=== PATIENT | female | born 1965 | race African-American/Black ===

== ENCOUNTER → 2016-10-04 | Outpatient (CLI) | payer OTHER ==
--- NOTE | 2016-10-04 13:11 | CT ---
EXAMINATION TYPE: CT brain wo con DATE OF EXAM: 10/04/2016 1:04 PM COMPARISON: CT and MRI brain May 31, 2016 HISTORY: MEDEROS, dizziness, blurred vision and leg weakness for [address] DLP: 1121 mGycm. Automated Exposure Control for Dose Reduction was Utilized. TECHNIQUE: CT scan of the head is performed without contrast. FINDINGS: There is no acute intracranial hemorrhage or midline shift identified. There is old infa rct right frontal parietal region near axial image 27 redemonstrated. There is additional area of enc ephalomalacia in the higher right parietal occipital region posterior watershed redemonstrated near i mage 39. The ventricles and sulci are within normal limits in size. The globes are intact and the vi sualized sinuses are clear. There is persistent anterior metopic suture. IMPRESSION: No acute intracranial hemorrhage or midline shift is seen. There are persistent old righ t-sided infarcts redemonstrated. No significant change from prior. If clinical concern for acute stro ke persists further investigation with MRI study may be warranted.
== END ==
LOC: RADCTMAIN 12:37
PROVIDERS: ATTEND Family Medicine
DX: R51 Headache (principal)
CPT/HCPCS: 70450

== ENCOUNTER → 2017-03-21 | Outpatient (CLI) | payer OTHER ==
--- NOTE | 2017-03-22 14:26 | US ---
EXAMINATION TYPE: US carotid duplex BILAT DATE OF EXAM: 03/21/2017 COMPARISON: Previous carotid Doppler duplex dated 05/31/2016 CLINICAL HISTORY: I63.311 R MCA INFARCTION. TIA's, dizziness EXAM MEASUREMENTS: RIGHT: Peak Systolic Velocity (PSV) cm/sec ----- Right CCA: not detected ----- Right ICA: not detected ----- Right ECA: not detected ICA/CCA ratio: N/A RIGHT: End Diastole cm/sec ----- Right CCA: not detected ----- Right ICA: not detected ----- Right ECA: not detected LEFT: Peak Systolic Velocity (PSV) cm/sec ----- Left CCA: 75.3 ----- Left ICA: 120.7 ----- Left ECA: 68.3 ICA/CCA ratio: 1.6 LEFT: End Diastole cm/sec ----- Left CCA: 27.3 ----- Left ICA: 61.2 ----- Left ECA: 19.5 VERTEBRALS (direction of flow): Right Vertebral: Antegrade Left Vertebral: Antegrade Right total occlusion within CCA, ICA and ECA, left has mild homogeneous plaque seen, with no signifi cant stenosis seen Grayscale, color Doppler, spectral Doppler imaging performed of the carotid arteries. IMPRESSION: Occluded right common carotid artery as on previous exam.
== END ==
LOC: RADUSWWP 16:01
PROVIDERS: ATTEND Psychiatry & Neurology Neurology
DX: I65.21 Occlusion and stenosis of right carotid artery (principal)
CPT/HCPCS: 93880

== ENCOUNTER → 2017-03-25 | Outpatient (CLI) | payer OTHER | END | disposition home or self-care (01) | LOC: RADMRIMAIN 10:00 | PROVIDERS: ATTEND Psychiatry & Neurology Pain Medicine | DX: Z53.9 Procedure and treatment not carried out, unspecified reason (principal) ==

== ENCOUNTER → 2017-04-09 | Outpatient (CLI) | payer OTHER ==
--- NOTE | 2017-04-09 11:28 | MR ---
EXAMINATION TYPE: MR brain wo con DATE OF EXAM: 04/09/2017 COMPARISON: MRI brain May 31, 2016. CT brain October 04, 2016. HISTORY: stroke per order, dizziness per patient. TECHNIQUE: Multiplanar, multisequence imaging of the brain and brainstem is performed without IV cont rast. FINDINGS: Diffusion weighted images demonstrate no evidence of a recent infarct or other diffusion abnormality. There is no extraaxial fluid collection or significant white matter signal abnormality. The ventricu lar system and cisternal spaces are normal in size and appearance. The brain volume is age appropria te. There is redemonstration of old infarcts posterior right frontal lobe and right parietal occipita l level posterior watershed region. Midline structures demonstrate normal morphology. The craniocervical junction appears within normal limits. Normal vascular flow voids are present. There is redemonstration of 1.4 cm mucous retention c yst or polyp in the anterior inferior right maxillary sinus otherwise paranasal sinuses are clear. Th e globes are intact bilaterally. IMPRESSION: No evidence of a recent infarct. Right-sided infarcts are redemonstrated. No significant change from prior studies is noted.
== END | disposition home or self-care (01) ==
LOC: RADMRIMAIN 09:41
PROVIDERS: ATTEND Psychiatry & Neurology Pain Medicine
DX: I63.9 Cerebral infarction, unspecified (principal)
CPT/HCPCS: 70551

== ENCOUNTER 2017-04-14 11:58 | Emergency (ER) | payer OTHER ==
[2017-04-14] MEDS ORDERED: SODIUM CHLORIDE 0.9% 1,000 ML IV STA (12:27)
[2017-04-14] MEDS ORDERED: SODIUM CHLORIDE 0.9% 500 ML IV STA (12:27)
[2017-04-14] MEDS ORDERED: DIAZEPAM 5 MG/ML 2 ML INJ IVP STA (12:27)
--- NOTE | 2017-04-14 12:46 | ED ---
Dizziness HPI - General Chief Complaint: Dizziness Stated Complaint: Dizziness Time Seen by Provider: 04/14/17 12:15 Source: patient Mode of arrival: ambulatory Limitations: no limitations - History of Present Illness Initial Comments: Presents with dizziness, which is not a new problem for her. Patient states she has had these symptoms since she was diagnosed with a stroke in May 2017, denies chronic deficits from a stroke other than recurrent dizziness. Patient does not normally come to the hospital for these episodes, however she is with a friend today who noticed she appeared off balance while walking and wanted her to come to the ER to be evaluated. She says she has similar episodes weekly, sometimes up to 3 times per day. Patient denies being on any medications for the dizziness. Patient states she was seen by ENT doctor 2 weeks ago, states has a follow-up appointment tomorrow to get the results of her testing. Patient denies any associated symptoms, including confusion, vision changes, speech problems, numbness, weakness, falls, fevers, chills, nausea, vomiting or chest pains, palpitations, shortness of breath. MD Complaint: dizziness Onset/Timin -: hour(s) Timing: sudden onset, constant Description: off-balance, other ("like I'm drunk") History of Same: Yes (Occurs weekly since stroke May 2016, up to 3x/day per patient) Severity: moderate Improves With: remaining still Worsens With: other (leaning head back, standing up, movement) - Related Data Home Medications Medication Instructions Recorded Confirmed QUEtiapine [SEROquel] 800 mg PO HS 05/31/16 04/14/17 lamoTRIgine [LaMICtal] 200 mg PO BID 05/31/16 04/14/17 Atorvastatin [Lipitor] 40 mg PO HS 04/14/17 04/14/17 Lisinopril-Hctz 20-25 mg 1 tab PO DAILY 04/14/17 04/14/17 [Zestoretic 20-25] Previous Rx's Medication Instructions Recorded Metoprolol Tartrate [Lopressor] 50 mg PO BID #60 tab 06/19/15 Aspirin 81 mg PO BID #1 chewable 06/03/16 Meclizine [Antivert] 25 mg PO TID PRN #15 tab 04/14/17 Allergies Allergy/AdvReac Type Severity Reaction Status Date / Time iodine Allergy Rash/Hives Verified 04/14/17 13:27 Review of Systems ROS Statement: Those systems with pertinent positive or pertinent negative responses have been documented in the HPI. ROS Other: All systems not noted in ROS Statement are negative. Constitutional: Denies: fever, chills, weakness Eyes: Denies: vision change ENT: Denies: ear pain, hearing loss, congestion Respiratory: Denies: cough, dyspnea, wheezes Cardiovascular: Denies: chest pain, palpitations, syncope Endocrine: Denies: fatigue Gastrointestinal: Denies: abdominal pain, nausea, vomiting, diarrhea, constipation Genitourinary: Reports: urgency. Denies: dysuria, frequency, hematuria Musculoskeletal: Denies: arthralgia, myalgia Skin: Denies: rash Neurological: Reports: abnormal gait, vertigo. Denies: headache, weakness, numbness, paresthesias, confusion Past Medical History Past Medical History: CVA/TIA, Hypertension Additional Past Medical History / Comment(s): pancreatitis, bipolar History of Any Multi-Drug Resistant Organisms: None Reported Past Surgical History: Hysterectomy Additional Past Surgical History / Comment(s): partial hysterectomy Past Anesthesia/Blood Transfusion Reactions: No Reported Reaction Past Psychological History: Bipolar Smoking Status: Current every day smoker Past Alcohol Use History: Occasional Past Drug Use History: None Reported - Past Family History Father Family Medical History: No Reported History Additional Family Medical History / Comment(s): from complications from alcoholism Mother History Unknown: Yes Family Medical History: Cancer, Hypertension, Osteoarthritis (OA) General Exam Limitations: no limitations General appearance: alert, in no apparent distress, other (Sitting up in bed. Acute distress. Conversing normally. Calm, pleasant. Well-appearing.) Head exam: Present: atraumatic, normocephalic Eye exam: Present: normal appearance, PERRL, other (Eye movements intact bilaterally). Absent: nystagmus Pupils: Absent: unequal ENT exam: Present: mucous membranes moist, normal external ear exam Neck exam: Present: normal inspection Respiratory exam: Present: normal lung sounds bilaterally. Absent: respiratory distress, wheezes Cardiovascular Exam: Present: regular rate, normal rhythm, normal heart sounds GI/Abdominal exam: Present: soft. Absent: distended, tenderness, guarding, rebound Extremities exam: Present: normal inspection Neurological exam: Present: alert, oriented X3, CN II-XII intact, other ( Cranial nerves II through XII intact. Conversing normally. Muscle strength 5 out of 5 in all extremities. [id number] coordinated bilaterally. Heel to hawkins coordinated bilaterally. Pronator drift negative bilaterally. Sensation grossly intact in all extremities. Patient appears slightly off balance when standing up at bedside.). Absent: motor sensory deficit Psychiatric exam: Present: normal affect, normal mood Skin exam: Present: warm, dry. Absent: diaphoretic Course Vital Signs 04/14/17 04/14/17 04/14/17 12:05 13:08 14:07 Temperature 98.7 F 98.5 F Pulse Rate 69 61 61 Respiratory 18 18 16 Rate Blood Pressure 118/74 113/60 119/80 O2 Sat by Pulse 100 98 100 Oximetry EKG Findings - EKG Comments: EKG Findings:: Normal sinus rhythm, heart rate 70, no ST or T-wave changes appreciated. Medical Decision Making - Medical Decision Making Patient presents with dizziness that is a chronic problem for her since May 2016. Patient states symptoms are the same, however her friend with her today wanted her to come to the ER. Given patient's history of stroke with similar symptoms, we'll get CT of the head. CT of the head shows no acute process Patient states dizziness and all symptoms resolved after Valium. Patient stood up at bedside, unsteadiness resolved, able to stand and ambulate without assistance. Patient feels comfortable going home at this time. Patient has appointment with ENT doctor tomorrow which she agrees to follow-up at. Patient instructed to call her primary care physician for follow-up within 2 days. Should patient's symptoms return patient may require admission or outpatient MRI by primary care physician. Do not feel patient has signs of acute stroke at this time as all her symptoms are resolved. Will discharge home. Prescription for Antivert given. Patient understands and agrees with treatment plan. Asymptomatically at time of discharge. - Lab Data Result diagrams: 04/14/17 12:55 04/14/17 12:55 Lab Results 04/14/17 04/14/17 04/14/17 Range/Units 12:47 12:55 12:55 WBC 4.1 (3.8-10.6) k/uL RBC 4.03 (3.80-5.40) m/uL Hgb 12.8 (11.4-16.0) gm/dL Hct 39.0 (34.0-46.0) % MCV 96.9 (80.0-100.0) fL MCH 31.7 (25.0-35.0) pg MCHC 32.8 (31.0-37.0) g/dL RDW 12.5 (11.5-15.5) % Plt Count 321 (150-450) k/uL Neutrophils % 49 % Lymphocytes % 39 % Monocytes % 6 % Eosinophils % 1 % Basophils % 1 % Neutrophils # 2.0 (1.3-7.7) k/uL Lymphocytes # 1.6 (1.0-4.8) k/uL Monocytes # 0.2 (0-1.0) k/uL Eosinophils # 0.1 (0-0.7) k/uL Basophils # 0.0 (0-0.2) k/uL PT (9.0-12.0) sec INR (<1.2) APTT (22.0-30.0) sec Sodium 141 (137-145) mmol/L Potassium 4.8 (3.5-5.1) mmol/L Chloride 104 (98-107) mmol/L Carbon Dioxide 25 (22-30) mmol/L Anion Gap 12 mmol/L BUN 18 H (7-17) mg/dL Creatinine 1.56 H (0.52-1.04) mg/dL Est GFR (MDRD) Af Amer 42 (>60 ml/min/1.73 sqM) Est GFR (MDRD) Non-Af 35 (>60 ml/min/1.73 sqM) Glucose 98 (74-99) mg/dL Calcium 9.7 (8.4-10.2) mg/dL Urine Color Yellow Urine Appearance Clear (Clear) Urine pH 6.0 (5.0-8.0) Ur Specific [place] 1.005 (1.001-1.035) Urine Protein Negative (Negative) Urine Glucose (UA) Negative (Negative) Urine Ketones Negative (Negative) Urine Blood Negative (Negative) Urine Nitrite Negative (Negative) Urine Bilirubin Negative (Negative) Urine Urobilinogen <2.0 (<2.0) mg/dL Ur Leukocyte Esterase Negative (Negative) Serum Alcohol <10 mg/dL 04/14/17 Range/Units 12:55 WBC (3.8-10.6) k/uL RBC (3.80-5.40) m/uL Hgb (11.4-16.0) gm/dL Hct (34.0-46.0) % MCV (80.0-100.0) fL MCH (25.0-35.0) pg MCHC (31.0-37.0) g/dL RDW (11.5-15.5) % Plt Count (150-450) k/uL Neutrophils % % Lymphocytes % % Monocytes % % Eosinophils % % Basophils % % Neutrophils # (1.3-7.7) k/uL Lymphocytes # (1.0-4.8) k/uL Monocytes # (0-1.0) k/uL Eosinophils # (0-0.7) k/uL Basophils # (0-0.2) k/uL PT 10.6 (9.0-12.0) sec INR 1.0 (<1.2) APTT 24.7 (22.0-30.0) sec Sodium (137-145) mmol/L Potassium (3.5-5.1) mmol/L Chloride (98-107) mmol/L Carbon Dioxide (22-30) mmol/L Anion Gap mmol/L BUN (7-17) mg/dL Creatinine (0.52-1.04) mg/dL Est GFR (MDRD) Af Amer (>60 ml/min/1.73 sqM) Est GFR (MDRD) Non-Af (>60 ml/min/1.73 sqM) Glucose (74-99) mg/dL Calcium (8.4-10.2) mg/dL Urine Color Urine Appearance (Clear) Urine pH (5.0-8.0) Ur Specific [place] (1.001-1.035) Urine Protein (Negative) Urine Glucose (UA) (Negative) Urine Ketones (Negative) Urine Blood (Negative) Urine Nitrite (Negative) Urine Bilirubin (Negative) Urine Urobilinogen (<2.0) mg/dL Ur Leukocyte Esterase (Negative) Serum Alcohol mg/dL - EKG Data EKG shows normal: sinus rhythm Rate: normal - Radiology Data Radiology results: report reviewed No acute intracranial process Disposition Clinical Impression: Dizziness Disposition: HOME SELF-CARE Condition: Good Instructions: Dizziness (ED) Additional Instructions: Follow-up at your scheduled ENT appointment tomorrow. Call your Primary care physician to schedule follow-up within 2 days. Return to ED immediately if there are any new or worsening symptoms, including vision changes, headaches, weakness, numbness, speech problems, fevers, chills, neck pain, falls. Prescriptions: Meclizine [Antivert] 25 mg PO TID PRN #15 tab PRN Reason: Dizziness Referrals: Antonio Monge DO [Primary Care Provider] - 1-2 days
[2017-04-14 12:54] LABS: Appearance,Urine Clear (Clear); Bilirubin,Urine Negative (Negative); Glucose,Urine (UA) Negative (Negative); Ketones,Urine Negative (Negative); Leukocyte Esterase,Urine Negative (Negative); Nitrite,Urine Negative (Negative); Protein,Urine Negative (Negative); Specific Gravity,Urine 1.005 (1.001-1.035); UA Billing (MACRO vs. MICRO) CHEM; Urobilinogen,Urine <2.0 mg/dL (<2.0)
--- NOTE | 2017-04-14 13:15 | CT ---
EXAMINATION TYPE: CT brain wo con DATE OF EXAM: 04/14/2017 COMPARISON: 10/04/16 HISTORY: Dizziness CT DLP: 822.[address] of the brain was performed. The ventricles, basal cisterns and sulci overlying the cerebral convexities demonstrate mild enlargem ent. Remote insult right parietal lobe. There is no evidence for intracranial hemorrhage or sulcal effacement. There is decreased attenuation about the periventricular white matter and deep white matter of both c erebral hemispheres, compatible with chronic small vessel ischemia. Differential diagnosis does inclu de demyelination. No mass effects are seen.No midline shift. Osseous calvarium is intact. If symptoms persist consider MRI. IMPRESSION: 1. Age related atrophic and chronic small vessel ischemic change without acute intracranial process s een at this time.
[2017-04-14 13:18] LABS: Alcohol <10 mg/dL; Anion Gap 12 mmol/L; Blood Urea Nitrogen 18 mg/dL (7-17); Calcium 9.7 mg/dL (8.4-10.2); Carbon Dioxide 25 mmol/L (22-30); Chloride 104 mmol/L (98-107); Glucose 98 mg/dL (74-99); Non-African American GFR(MDRD) 35 (>60 ml/min/1.73 sqM); Potassium 4.8 mmol/L (3.5-5.1); Sodium 141 mmol/L (137-145)
[2017-04-14 13:20] LABS: Partial Thromboplastin Time 24.7 sec (22.0-30.0); Prothrombin Time 10.6 sec (9.0-12.0)
[2017-04-14 13:23] VITALS: PULSE 61
[2017-04-14 13:24] LABS: Basophils % (A) 1 %; CH 31.9; Eosinophils # (A) 0.1 k/uL (0-0.7); Eosinophils % (A) 1 %; HDW 1.98; HGB 12.8 gm/dL (11.4-16.0); Luc # (Auto) 0.17; Luc % (Auto) 4; Lymphocytes # (A) 1.6 k/uL (1.0-4.8); Lymphocytes % (A) 39 %; MCH 31.7 pg (25.0-35.0); MCHC 32.8 g/dL (31.0-37.0); MCV 96.9 fL (80.0-100.0); Mean Platelet Volume 7.9; Monocytes # (A) 0.2 k/uL (0-1.0); Monocytes % (A) 6 %; Neutrophils % (A) 49 %; RBC 4.03 m/uL (3.80-5.40); RDW 12.5 % (11.5-15.5); WBC 4.1 k/uL (3.8-10.6); WBC (Perox) 4.14
[2017-04-14 14:08] VITALS: BP 119/80; RESP 16; TEMP 98.5
== END 2017-04-14 14:23 | disposition home or self-care (01) ==
LOC: EC 11:58
DX: R42 Dizziness and giddiness (principal); I10 Essential (primary) hypertension; F31.9 Bipolar disorder, unspecified; F17.200 Nicotine dependence, unspecified, uncomplicated; Z86.73 Personal history of transient ischemic attack (TIA), and cerebral infarction without residual deficits; Z91.048 Other nonmedicinal substance allergy status; Z79.899 Other long term (current) drug therapy
CPT/HCPCS: 99284 ×2; 96374 ×2; 96361 ×2; 36415; 93005; 80048; 85025; 85610; 85730; 81003; 80320; 70450; J3360

== ENCOUNTER → 2017-05-21 | Outpatient (CLI) | payer OTHER ==
--- NOTE | 2017-05-23 10:59 | MM ---
Reason for exam: screening (asymptomatic). Last mammogram was performed 11 years ago. History: Patient is postmenopausal. Family history of breast cancer in mother at age 78. Physical Findings: A clinical breast exam by your physician is recommended on an annual basis and results should be correlated with mammographic findings. MG Screening Mammo w CAD Bilateral CC and MLO view(s) were taken. Prior study comparison: May 09, 2006, bilateral screening mammogram w/CAD. August 20, 2002, bilateral screening mammogram. The breast tissue is heterogeneously dense. This may lower the sensitivity of mammography. There is no discrete abnormality. ASSESSMENT: Negative, BI-RAD 1 RECOMMENDATION: Routine screening mammogram of both breasts in 1 year.
== END | disposition home or self-care (01) ==
LOC: RADMAMWWP 08:02
PROVIDERS: ATTEND Family Medicine
DX: Z12.31 Encounter for screening mammogram for malignant neoplasm of breast (principal)

== ENCOUNTER → 2017-11-10 | Outpatient (CLI) | payer OTHER ==
[2017-11-10 17:37] LABS: Basophils % (A) 1 %; Eosinophils # (A) 0.1 k/uL (0-0.7); Eosinophils % (A) 1 %; HCT 40.5 % (34.0-46.0); HGB 13.6 gm/dL (11.4-16.0); Lymphocytes # (A) 2.5 k/uL (1.0-4.8); Lymphocytes % (A) 35 %; MCH 31.2 pg (25.0-35.0); MCHC 33.5 g/dL (31.0-37.0); Mean Platelet Volume 7.9; Monocytes # (A) 0.3 k/uL (0-1.0); Monocytes % (A) 4 %; Neutrophils # (A) 4.2 k/uL (1.3-7.7); Neutrophils % (A) 58 %; Platelet Count 305 k/uL (150-450); RBC 4.35 m/uL (3.80-5.40); WBC 7.2 k/uL (3.8-10.6)
[2017-11-10 17:50] LABS: Calcium 9.9 mg/dL (8.4-10.2); Magnesium 2.2 mg/dL (1.6-2.3); Phosphorus 3.3 mg/dL (2.5-4.5); Potassium 4.4 mmol/L (3.5-5.1); Uric Acid 4.8 mg/dL (3.7-7.4)
[2017-11-10 17:54] LABS: Appearance,Urine Clear (Clear); Bilirubin,Urine Negative (Negative); Blood,Urine Negative (Negative); Color,Urine Yellow; Glucose,Urine (UA) Negative (Negative); Ketones,Urine Negative (Negative); Leukocyte Esterase,Urine Small (Negative); Mucus,Urine Rare /hpf; Nitrite,Urine Negative (Negative); PH, Urine 5.5 (5.0-8.0); Protein,Urine Negative (Negative); RBC,Urine 1 /hpf (0-5); Specific Gravity,Urine 1.014 (1.001-1.035); Squamous Epithelial Cell,Urine 2 /hpf (0-4); Urobilinogen,Urine <2.0 mg/dL (<2.0); WBC,Urine 9 /hpf (0-5)
[2017-11-11 00:49] LABS: Iron Saturation 25.42 (12.00-45.00)
[2017-11-11 00:58] LABS: Vitamin D 25 Hydroxy 24.2 ng/mL (30.0-100.0)
[2017-11-11 01:17] LABS: Parathyroid Hormone Intact 41.3 pg/mL (14.0-72.0)
== END | disposition home or self-care (01) ==
LOC: LABWHC1 17:18
PROVIDERS: ATTEND Internal Medicine Nephrology
DX: N18.4 Chronic kidney disease, stage 4 (severe) (principal); E55.9 Vitamin D deficiency, unspecified; E21.3 Hyperparathyroidism, unspecified; E83.39 Other disorders of phosphorus metabolism; M10.9 Gout, unspecified; R80.9 Proteinuria, unspecified
CPT/HCPCS: 36415; 80048; 81001; 82306; 82728; 83540; 83550; 83735; 83970; 84100; 84550; 85025

== ENCOUNTER → 2017-12-04 | Outpatient (CLI) | payer OTHER ==
--- NOTE | 2017-12-04 17:21 | US ---
EXAMINATION TYPE: US carotid duplex BILAT DATE OF EXAM: 12/04/2017 COMPARISON: 03/21/2017 CLINICAL HISTORY: I63.9 Cerebral infarction, unspecified. EXAM MEASUREMENTS: RIGHT: Peak Systolic Velocity (PSV) cm/sec ----- Right CCA: 46.9 ----- Right ICA: 67.9 ----- Right ECA: 42.3 ICA/CCA ratio: 1.4 RIGHT: End Diastole cm/sec ----- Right CCA: 19.3 ----- Right ICA: 27.7 ----- Right ECA: 42.3 LEFT: Peak Systolic Velocity (PSV) cm/sec ----- Left CCA: 87.3 ----- Left ICA: 105.0 ----- Left ECA: 81.9 ICA/CCA ratio: 1.2 LEFT: End Diastole cm/sec ----- Left CCA: 36.7 ----- Left ICA: 58.6 ----- Left ECA: 34.6 VERTEBRALS (direction of flow): Right Vertebral: Antegrade Left Vertebral: Antegrade Right sided CCA of very small caliber, ICA and ECA measuring only 2mm. There does not seem to be any plaque in these vessels. Technically difficult due to small size. Left side show no evident atherosclerotic changes. Left ICA dives at 90 degree angle making it diffic ult to visualized distally. IMPRESSION: exam what is attributed to be the right carotid artery I think is a collateral vessel. There is evidence for complete occlusion of the right internal and common carotid artery. No evidence of hemodynamically significant stenosis in the left common and internal carotid artery. M easurements suggest less than 25% stenosis in the left internal carotid artery. There is antegrade flow in the vertebral arteries. There is no significant change compared to old exam. Criteria for Assigning % of Stenosis / Diameter reduction (Estimation based on the indirect measurements of the internal carotid artery velocities (ICA PSV). 1. Normal (no stenosis)=ICA PSV < 125 cm/s: ratio < 2.0: ICA EDV<40 cm/s. 2. Less than 50% stenosis=ICA PSV < 125 cm/s: ratio < 2.0: ICA EDV<40 cm/s. 3. 50 to 69% stenosis=ICA PSV of 125 to 230 cm/s: ration 2.0 ? 4.0: ICA EDV 40-100 cm/s. 4. Greater than 70% stenosis to near occlusion= ICA PSV > 230 cm/s: ratio > 4.0: ICA EDV > 100 cm/s. 5. Near occlusion= ICA PSV velocities may be low or undetectable: variable ratio and ICA EDV. 6. Total occlusion=unable to detect flow.
--- NOTE | 2017-12-05 08:40 | CT ---
EXAMINATION TYPE: CT angio head neck DATE OF EXAM: 12/04/2017 HISTORY: Dizzy spells, memory issues. COMPARISON: Carotid ultrasound dated 12/04/2017 CT DLP: 273.2 mGycm. Automated Exposure Control for Dose Reduction was Utilized. TECHNIQUE: CTA scan of the neck is performed with IV Contrast, patient injected with 65 mL of Isovue 370, axial images are obtained, coronal and sagittal reformatted images are reviewed. Three-D recons tructed images are created on an independent workstation and reviewed. FINDINGS: Carotid/Vascular Structures: As seen on the carotid ultrasound dated 12/04/2017 and additionally the u ltrasound dated 03/21/2017 as well as on the CT AngioJet and neck dated 06/02/2016 there is complete oc clusion of the right common carotid artery near its origin. Again there is total occlusion of the rig ht common carotid artery and internal carotid artery with some minimal likely retrograde flow in the supraclinoid portion of the right internal carotid artery near the [place]. Left internal ca rotid artery remains entirely patent without hemodynamically significant stenosis throughout the comm on carotid artery or internal carotid artery again the [place] is intact. No focal aneurysma l outpouching is seen of the intracranial vasculature. Hypoplasia of the right A1 segment is less pro nounced on today's examination than on the prior. The vertebral arteries are codominant and patent as is the basilar artery. Few small collateral vessels appear within the region of the right common and internal carotid artery. Other: Right maxillary mucosal retention cyst measures 1.5 cm. Frontal sinuses are hypoplastic. Remai nder of the paranasal sinuses and mastoid air cells are well aerated. Although evaluation of the brai n parenchyma is limited due to technique there is a wedge-shaped area of hypoattenuation within the r ight frontal lobe near the sylvian fissure related to encephalomalacia from prior injury as this was present on the exam of 06/16/2017. Additionally encephalomalacia from prior infarct is unchanged withi n the right parietal lobe from the exam of 06/16/2017. Multilevel mild degenerative changes of the cer vical spine are noted. IMPRESSION: 1. Redemonstration of the known chronic total occlusion of the right common carotid artery near its o rigin and extending into the right internal carotid artery. Left vertebral artery appears widely [place] nt and [place] is intact. 2. Unchanged encephalomalacia within the right frontal and parietal lobes in comparison to the prior CT brain on 06/16/2017.
== END | disposition home or self-care (01) ==
LOC: RADUSMAIN 15:52
PROVIDERS: ATTEND Surgery Plastic and Reconstructive Surgery
DX: I65.21 Occlusion and stenosis of right carotid artery (principal); G93.89 Other specified disorders of brain
CPT/HCPCS: 93880; 70496; 70498; Q9967

== ENCOUNTER → 2017-12-15 | Outpatient (CLI) | payer OTHER ==
[2017-12-15 14:57] LABS: Basophils % (A) 1 %; Eosinophils % (A) 1 %; HCT 39.5 % (34.0-46.0); HGB 13.4 gm/dL (11.4-16.0); Lymphocytes # (A) 1.7 k/uL (1.0-4.8); Lymphocytes % (A) 30 %; MCH 32.2 pg (25.0-35.0); MCV 94.8 fL (80.0-100.0); Mean Platelet Volume 8.1; Monocytes # (A) 0.3 k/uL (0-1.0); Monocytes % (A) 5 %; Neutrophils # (A) 3.5 k/uL (1.3-7.7); Neutrophils % (A) 62 %; Platelet Count 255 k/uL (150-450); RBC 4.17 m/uL (3.80-5.40); RDW 14.1 % (11.5-15.5); WBC 5.7 k/uL (3.8-10.6)
[2017-12-15 15:15] LABS: Appearance,Urine Clear (Clear); Bilirubin,Urine Negative (Negative); Blood,Urine Negative (Negative); Color,Urine Yellow; Glucose,Urine (UA) Negative (Negative); Ketones,Urine Negative (Negative); Leukocyte Esterase,Urine Negative (Negative); Nitrite,Urine Negative (Negative); PH, Urine 5.5 (5.0-8.0); Protein,Urine Negative (Negative); Specific Gravity,Urine 1.011 (1.001-1.035); Urobilinogen,Urine <2.0 mg/dL (<2.0)
[2017-12-15 15:16] LABS: Magnesium 1.9 mg/dL (1.6-2.3); Phosphorus 4.1 mg/dL (2.5-4.5); Potassium 4.2 mmol/L (3.5-5.1); Uric Acid 4.1 mg/dL (3.7-7.4)
[2017-12-15 18:39] LABS: Iron Saturation 21.25 (12.00-45.00)
[2017-12-15 18:48] LABS: Vitamin D 25 Hydroxy 90.9 ng/mL (30.0-100.0)
[2017-12-15 19:23] LABS: Parathyroid Hormone Intact 37.6 pg/mL (14.0-72.0)
== END | disposition home or self-care (01) ==
LOC: LABWHC1 13:53
PROVIDERS: ATTEND Internal Medicine Nephrology
DX: N18.4 Chronic kidney disease, stage 4 (severe) (principal)
CPT/HCPCS: 36415; 80048; 81003; 82306; 82728; 83540; 83550; 83735; 83970; 84100; 84550; 85025

== ENCOUNTER 2018-01-28 08:45 | Day surgery (SDC) | payer OTHER ==
[2018-01-23 15:15] VITALS: BMI 30.2
[~2018-01-28 08:45] MED LIST: LACTATED RINGERS 1,000 ML IV SCH
--- NOTE | 2018-01-28 09:08 | P.GSHP ---
History of Present Illness H&P Date: 01/28/18 CHIEF COMPLAINT: Colon screen HISTORY OF PRESENT ILLNESS: The patient is a 52-year-old female who presents for colon screen. Lower endoscopy was offered for further evaluation and management. PAST MEDICAL HISTORY: Please see list. PAST SURGICAL HISTORY: Please see list. MEDICATIONS: Please see list. ALLERGIES: Please see list. SOCIAL HISTORY: No illicit drug use FAMILY HISTORY: No reports of Crohn disease or ulcerative colitis. REVIEW OF ORGAN SYSTEMS: CONSTITUTIONAL: No reports of fevers or chills. PHYSICAL EXAM: VITAL SIGNS: Stable GENERAL: Well-developed pleasant in no acute distress. HEENT: No scleral icterus. Extraocular movements grossly intact. Moist buccal mucosa. NECK: Supple without lymphadenopathy. CHEST: Unlabored respirations. Equal bilateral excursions. CARDIOVASCULAR: Regular rate and rhythm. Distal 2+ pulses. ABDOMEN: Soft, nontender, nondistended. MUSCULOSKELETAL: No clubbing, cyanosis, or edema. ASSESSMENT: 1. Colon screen. PLAN: 1. Recommend proceeding with a lower endoscopy Past Medical History Past Medical History: CVA/TIA, Hypertension Additional Past Medical History / Comment(s): pancreatitis,CVA X 2-pancreatitis History of Any Multi-Drug Resistant Organisms: None Reported Past Surgical History: Hysterectomy Additional Past Surgical History / Comment(s): partial hysterectomy Past Anesthesia/Blood Transfusion Reactions: No Reported Reaction Smoking Status: Current some day smoker - Past Family History Father Family Medical History: No Reported History Additional Family Medical History / Comment(s): from complications from alcoholism Mother History Unknown: Yes Family Medical History: Cancer, Hypertension, Osteoarthritis (OA) Additional Family Medical History / Comment(s): breast CA Medications and Allergies Home Medications Medication Instructions Recorded Confirmed Type Metoprolol Tartrate [Lopressor] 50 mg PO BID #60 tab 06/19/15 01/23/18 Rx QUEtiapine [SEROquel] 800 mg PO HS 05/31/16 01/23/18 History lamoTRIgine [LaMICtal] 200 mg PO BID 05/31/16 01/23/18 History Atorvastatin [Lipitor] 40 mg PO HS 04/14/17 01/23/18 History Lisinopril-Hctz 20-25 mg 1 tab PO DAILY 04/14/17 01/23/18 History [Zestoretic 20-25] Aspirin EC [Ecotrin Low Dose] 81 mg PO DAILY 12/04/17 07/13/18 History Clopidogrel Bisulfate [Plavix] 75 mg PO DAILY 06/16/17 01/23/18 History Memantine [Namenda] 10 mg PO DAILY 06/16/17 01/23/18 History Meclizine [Antivert] 25 mg PO BID PRN 01/23/18 01/23/18 History Allergies Allergy/AdvReac Type Severity Reaction Status Date / Time iodine Allergy Rash/Hives Verified 01/23/18 15:05
[2018-01-28 09:16] VITALS: RESP 16; TEMP 97
[2018-01-28] MEDS ORDERED: LIDOCAINE 1% 20 ML VIAL (10MG/ML) FOR IV START INTRADERMA ONE (09:26)
[2018-01-28] MEDS ORDERED: PROPOFOL 10 MG/ML 20 ML VIAL IV ONE (09:37)
--- NOTE | 2018-01-28 10:06 | P.PCN ---
Date of Procedure: 01/28/18 Description of Procedure: PREOPERATIVE DIAGNOSIS: Colonoscopy screening Family history of colon cancer, father Personal history of large colon adenoma POSTOPERATIVE DIAGNOSIS: Colonoscopy screening Family history of colon cancer, father Personal history of large colon adenoma Multiple colon polyps proximal transverse colon External hemorrhoids, grade 3 OPERATION: Colonoscopy to the ileocecal valve and appendiceal orifice. Colonoscopy with hot snare polypectomy SURGEON: Lea Del Rosario MD. ANESTHESIA: MAC. INDICATIONS: The patient is a 52-year-old female who presents for colonoscopy screening. Benefits and risks were described and informed consent was obtained. DESCRIPTION OF PROCEDURE: The patient had undergone Gatorade, MiraLAX and Dulcolax prep. She had been brought into the operating room and laid in the left lateral decubitus position. After adequate intravenous sedation, the rectum was examined with 2% lidocaine jelly. External hemorrhoids were encountered. The rectal tone was within normal limits. No lesions were palpated in the rectal vault. An Olympus colonoscope was advanced until the ileocecal valve and appendiceal orifice were clearly viewed. The prep was fair with visualization of the mucosal folds. The scope was removed with visualization of each mucosal fold. No sigmoid diverticulosis was encountered. Colonic polyps were found and cold forcep biopsy or snare polypectomy. No evidence of focal colitis was found. Retroflexion of the scope demonstrated grade 2 internal hemorrhoids without active bleeding or inflammation. The colon was desufflated. The patient had tolerated the procedure well. Withdrawal time was over 6 minutes. FINDINGS: Internal hemorrhoids, grade 2 External hemorrhoids, grade 3 No arteriovenous malformations Removal of 1 polyp: - Snare polypectomy 10 mm tubulovillous adenoma polyp, mid transverse colon No focal colitis No sigmoid diverticulosis RECOMMENDATIONS: Given high personal and familial risks, repeat colonoscopy 2019 Plan - Discharge Summary New Discharge Prescriptions: No Action Metoprolol Tartrate [Lopressor] 50 mg PO BID #60 tab lamoTRIgine [LaMICtal] 200 mg PO BID QUEtiapine [SEROquel] 800 mg PO HS Atorvastatin [Lipitor] 40 mg PO HS Lisinopril-Hctz 20-25 mg [Zestoretic 20-25] 1 tab PO DAILY Memantine [Namenda] 10 mg PO DAILY Clopidogrel Bisulfate [Plavix] 75 mg PO DAILY Aspirin EC [Ecotrin Low Dose] 81 mg PO DAILY Meclizine [Antivert] 25 mg PO BID PRN PRN Reason: dizziness Discharge Medication List Metoprolol Tartrate [Lopressor] 50 mg PO BID #60 tab 06/19/15 [Rx] QUEtiapine [SEROquel] 800 mg PO HS 05/31/16 [History] lamoTRIgine [LaMICtal] 200 mg PO BID 05/31/16 [History] Atorvastatin [Lipitor] 40 mg PO HS 04/14/17 [History] Lisinopril-Hctz 20-25 mg [Zestoretic 20-25] 1 tab PO DAILY 04/14/17 [History] Aspirin EC [Ecotrin Low Dose] 81 mg PO DAILY 06/16/17 [History] Clopidogrel Bisulfate [Plavix] 75 mg PO DAILY 06/16/17 [History] Memantine [Namenda] 10 mg PO DAILY 06/16/17 [History] Meclizine [Antivert] 25 mg PO BID PRN 01/23/18 [History]
[2018-01-28 10:20] VITALS: BP 130/90; PULSE 75
== END 2018-01-28 10:38 | disposition home or self-care (01) ==
LOC: ORWHC2ENDO 08:45
PROVIDERS: ATTEND Surgery Plastic and Reconstructive Surgery
DX: Z12.11 Encounter for screening for malignant neoplasm of colon (principal); D12.3 Benign neoplasm of transverse colon; K64.1 Second degree hemorrhoids; K64.4 Residual hemorrhoidal skin tags; Z86.010 Personal history of colon polyps; Z80.0 Family history of malignant neoplasm of digestive organs; I10 Essential (primary) hypertension; I25.10 Atherosclerotic heart disease of native coronary artery without angina pectoris; Z90.710 Acquired absence of both cervix and uterus; Z86.73 Personal history of transient ischemic attack (TIA), and cerebral infarction without residual deficits; Z91.09 Other allergy status, other than to drugs and biological substances; Z79.02 Long term (current) use of antithrombotics/antiplatelets; Z79.82 Long term (current) use of aspirin; Z79.899 Other long term (current) drug therapy; Z87.891 Personal history of nicotine dependence
CPT/HCPCS: 88305; 45385; J2704

== ENCOUNTER → 2018-05-20 | Outpatient (CLI) | payer OTHER ==
[2018-05-20 14:22] LABS: Appearance,Urine Clear (Clear); Bilirubin,Urine Negative (Negative); Blood,Urine Negative (Negative); Color,Urine Yellow; Glucose,Urine (UA) Negative (Negative); Ketones,Urine Negative (Negative); Leukocyte Esterase,Urine Negative (Negative); Nitrite,Urine Negative (Negative); Protein,Urine Negative (Negative); Specific Gravity,Urine 1.012 (1.001-1.035); Urobilinogen,Urine <2.0 mg/dL (<2.0)
[2018-05-20 14:35] LABS: HGB 13.9 gm/dL (11.4-16.0); MCH 32.5 pg (25.0-35.0); MCHC 33.9 g/dL (31.0-37.0); Mean Platelet Volume 8.3; Platelet Count 246 k/uL (150-450); RBC 4.27 m/uL (3.80-5.40); RDW 13.1 % (11.5-15.5); WBC 5.4 k/uL (3.8-10.6)
[2018-05-20 15:07] LABS: Eosinophils # (M) 0.11 k/uL (0-0.7); Lymphocytes # (M) 2.32 k/uL (1.0-4.8); Monocytes # (M) 0.22 k/uL (0-1.0); Neutrophils # (M) 2.75 k/uL (1.3-7.7); Neutrophils % (M) 51 %; Nucleated Red Blood Cells 0 /100 WBC (0-0); Total Cells Counted 100
[2018-05-20 18:53] LABS: Iron Saturation 25.77 (12.00-45.00)
[2018-05-20 19:02] LABS: Vitamin D 25 Hydroxy 33.8 ng/mL (30.0-100.0)
[2018-05-20 19:18] LABS: Anion Gap 6.1 mmol/L (4.00-12.00); Calcium 9.1 mg/dL (8.7-10.3); Carbon Dioxide 31.9 mmol/L (21.6-31.8); Phosphorus 3.5 mg/dL (2.4-5.1); Potassium 3.8 mmol/L (3.5-5.5); Uric Acid 3.7 mg/dL (2.9-7.7)
[2018-05-20 19:49] LABS: Parathyroid Hormone Intact 60.5 pg/mL (14.0-72.0)
== END | disposition home or self-care (01) ==
LOC: LABWHC1 13:33
PROVIDERS: ATTEND Nurse Practitioner Family
DX: N18.3 Chronic kidney disease, stage 3 (moderate) (principal); E55.9 Vitamin D deficiency, unspecified; N25.81 Secondary hyperparathyroidism of renal origin; D63.1 Anemia in chronic kidney disease; N39.0 Urinary tract infection, site not specified; M10.9 Gout, unspecified
CPT/HCPCS: 36415; 80048; 81003; 82306; 82728; 83540; 83550; 83735; 83970; 84100; 84550; 85025

== ENCOUNTER 2018-05-28 10:57 | Day surgery (SDC) | payer OTHER ==
[2018-05-22 16:05] VITALS: BMI 30.2
[~2018-05-28 10:57] MED LIST changes: -LACTATED RINGERS 1,000 ML IV SCH; +SODIUM CHLORIDE 0.9% 1,000 ML IV SCH
[2018-05-28 11:46] VITALS: BP 122/87; PULSE 104; RESP 20; TEMP 98.2
[2018-05-28] MEDS ORDERED: IV FLUID CONTINUATION 500 ML IV ONE (13:14)
--- NOTE | 2018-05-28 16:41 | P.PCN ---
Preoperative Diagnosis: Diagnosis Recurrent dizzy spells with falls no loss of consciousness Twelve-lead ECG shows sinus rhythm normal DC narrow QRS normal ST segments Tilt table test per protocol Baseline blood pressure 137/92 mmHg Baseline heart rate 89 beats a minute patient was tilted upright at an angle of 70 there was an immediate drop in blood pressure to 117/75 mmHg with a rise in heart rate to 100 beats a minute a blood pressure then improved and came back to baseline but a heart rate remained consistently elevated in the 90s and low 100s She complained of a swimming feeling in the head and mild dizziness Mild orthostatic hypotension which resolved but with a 10-20 point increase in heart rate upon standing Impression Possible mild orthostatic intolerance
== END 2018-05-28 14:53 | disposition home or self-care (01) ==
LOC: CATHEP 10:57
PROVIDERS: ATTEND Internal Medicine Clinical Cardiac Electrophysiology
DX: I95.1 Orthostatic hypotension (principal); R94.31 Abnormal electrocardiogram [ECG] [EKG]; Z91.041 Radiographic dye allergy status
CPT/HCPCS: 93660

== ENCOUNTER → 2019-01-25 | Outpatient (CLI) | payer OTHER ==
--- NOTE | 2019-01-26 09:56 | MM ---
Reason for exam: screening (asymptomatic). Last mammogram was performed 1 year and 8 months ago. History: Patient is postmenopausal. Family history of breast cancer in mother at age 78. Physical Findings: A clinical breast exam by your physician is recommended on an annual basis and results should be correlated with mammographic findings. MG Screening Mammo w CAD Bilateral CC and MLO view(s) were taken. Prior study comparison: May 21, 2017, bilateral MG screening mammo w CAD. May 09, 2006, bilateral screening mammogram w/CAD. The breast tissue is heterogeneously dense. This may lower the sensitivity of mammography. No significant changes when compared with prior studies. ASSESSMENT: Benign, BI-RAD 2 RECOMMENDATION: Routine screening mammogram of both breasts in 1 year.
== END | disposition home or self-care (01) ==
LOC: RADMAMWWP 16:30
PROVIDERS: ATTEND Family Medicine
DX: Z12.31 Encounter for screening mammogram for malignant neoplasm of breast (principal)
CPT/HCPCS: 77067

== ENCOUNTER 2020-01-12 07:01 | Day surgery (SDC) | payer MEDICARE, OTHER ==
[2020-01-10 13:45] VITALS: BMI 30.4
[~2020-01-12 07:01] MED LIST changes: +LACTATED RINGERS 1,000 ML IV SCH; -SODIUM CHLORIDE 0.9% 1,000 ML IV SCH
[2020-01-12 07:35] VITALS: RESP 16; TEMP 96.6
[2020-01-12] MEDS ORDERED: LIDOCAINE 1% (10MG/ML) FOR IV START INTRADERMA ONE (07:45)
[2020-01-12] MEDS ORDERED: PROPOFOL 10 MG/ML 20 ML VIAL IV ONE (08:34)
[2020-01-12] MEDS ORDERED: SODIUM CHLORIDE 0.9% 500 ML 500 ML IV ONE (09:02)
--- NOTE | 2020-01-12 09:22 | P.GSHP ---
History of Present Illness H&P Date: 01/12/20 CHIEF COMPLAINT: Colon screen HISTORY OF PRESENT ILLNESS: The patient is a 54-year-old female who presents for colon screen. Lower endoscopy was offered for further evaluation and management. PAST MEDICAL HISTORY: Please see list. PAST SURGICAL HISTORY: Please see list. MEDICATIONS: Please see list. ALLERGIES: Please see list. SOCIAL HISTORY: No illicit drug use FAMILY HISTORY: No reports of Crohn disease or ulcerative colitis. REVIEW OF ORGAN SYSTEMS: CONSTITUTIONAL: No reports of fevers or chills. PHYSICAL EXAM: VITAL SIGNS: Stable GENERAL: Well-developed pleasant in no acute distress. HEENT: No scleral icterus. Extraocular movements grossly intact. Moist buccal mucosa. NECK: Supple without lymphadenopathy. CHEST: Unlabored respirations. Equal bilateral excursions. CARDIOVASCULAR: Regular rate and rhythm. Distal 2+ pulses. ABDOMEN: Soft, nontender, nondistended. MUSCULOSKELETAL: No clubbing, cyanosis, or edema. ASSESSMENT: 1. Colon screen. PLAN: 1. Recommend proceeding with a lower endoscopy Past Medical History Past Medical History: CVA/TIA, Hypertension Additional Past Medical History / Comment(s): pancreatitis, bipolar, hx of colon polyps History of Any Multi-Drug Resistant Organisms: None Reported Past Surgical History: Hysterectomy Additional Past Surgical History / Comment(s): partial hysterectomy, colonoscopy Past Anesthesia/Blood Transfusion Reactions: No Reported Reaction Smoking Status: Current some day smoker - Past Family History Father Family Medical History: No Reported History Additional Family Medical History / Comment(s): from complications from alcoholism Mother History Unknown: Yes Family Medical History: Cancer, Hypertension, Osteoarthritis (OA) Additional Family Medical History / Comment(s): breast CA Medications and Allergies Home Medications Medication Instructions Recorded Confirmed Type Metoprolol Tartrate [Lopressor] 50 mg PO BID #60 tab 06/19/15 01/10/20 Rx QUEtiapine [SEROquel] 800 mg PO HS 05/31/16 01/10/20 History lamoTRIgine [LaMICtal] 200 mg PO BID 05/31/16 01/10/20 History Lisinopril-Hctz 20-25 mg 1 tab PO DAILY 04/14/17 01/10/20 History [Zestoretic 20-25] Aspirin EC [Ecotrin Low Dose] 81 mg PO DAILY 06/16/17 01/10/20 History Meclizine [Antivert] 25 mg PO BID PRN 01/23/18 01/10/20 History Allergies Allergy/AdvReac Type Severity Reaction Status Date / Time Iodinated Contrast Media Allergy Rash/Hives Verified 01/12/20 07:31 [Iodinated Contrast- Oral and IV Dye] iodine Allergy Rash/Hives Verified 01/12/20 07:31 Surgical - Exam Vital Signs Temp Pulse Resp BP Pulse Ox 96.6 F L 92 16 162/95 98 01/12/20 07:33 01/12/20 07:33 01/12/20 07:33 01/12/20 07:33 01/12/20 07:33
[2020-01-12 09:42] VITALS: BP 163/90; PULSE 84
--- NOTE | 2020-01-12 09:48 | P.PCN ---
Date of Procedure: 01/12/20 Description of Procedure: PREOPERATIVE DIAGNOSIS: Personal history of colon polyps Family history malignant colon polyps POSTOPERATIVE DIAGNOSIS: Personal history of colon polyps Family history malignant colon polyps Tubular adenoma cecum Internal hemorrhoids, grade 2 OPERATION: Colonoscopy to the ileocecal valve and appendiceal orifice, cecum Colonoscopy with multiple hot snare polypectomies SURGEON: Lea Del Rosario MD. ANESTHESIA: MAC. INDICATIONS: The patient is an 63-year-old male who presents family history of malignant colon polyps and personal history of colon polyps. Last colonoscopy 5 years. Benefits and risks were described and informed consent was obtained. DESCRIPTION OF PROCEDURE: The patient had undergone Suprep. She had been brought into the operating room and laid in the left lateral decubitus position. After adequate intravenous sedation, the rectum was examined with 2% lidocaine jelly. External hemorrhoids were encountered. The rectal tone was within normal limits. No lesions were palpated in the rectal vault. An Olympus colonoscope was advanced until the cecum, ileocecal valve and appendiceal orifice were clearly viewed. The prep was fair. No sigmoid diverticulosis was encountered. Multiple colonic polyps were found and snare polypectomy. No evidence of focal colitis was found. Retroflexion of the scope demonstrated grade 2 internal hemorrhoids without active bleeding or inflammation. The colon was desufflated. The patient had tolerated the procedure well. Withdrawal time was over 6 minutes. FINDINGS: Aronchick preparation quality scale 3 (1-5) Internal hemorrhoids, grade 2 External hemorrhoids, grade 2 No arteriovenous malformations. No Sigmoid diverticulosis Removal of 2 polyps: - Snare polypectomy at cecum 2, 8 mm and 6 mm tubulovillous adenoma polyp. No focal colitis. RECOMMENDATIONS: Repeat colonoscopy in 3 years, 2024 Plan - Discharge Summary Discharge Rx Participant: No New Discharge Prescriptions: Continue Metoprolol Tartrate [Lopressor] 50 mg PO BID #60 tab lamoTRIgine [LaMICtal] 200 mg PO BID QUEtiapine [SEROquel] 800 mg PO HS Lisinopril-Hctz 20-25 mg [Zestoretic 20-25] 1 tab PO DAILY Aspirin EC [Ecotrin Low Dose] 81 mg PO DAILY Meclizine [Antivert] 25 mg PO BID PRN PRN Reason: dizziness Discharge Medication List Metoprolol Tartrate [Lopressor] 50 mg PO BID #60 tab 12/07/15 [Rx] QUEtiapine [SEROquel] 800 mg PO HS 05/31/16 [History] lamoTRIgine [LaMICtal] 200 mg PO BID 05/31/16 [History] Lisinopril-Hctz 20-25 mg [Zestoretic 20-25] 1 tab PO DAILY 04/14/17 [History] Aspirin EC [Ecotrin Low Dose] 81 mg PO DAILY 06/16/17 [History] Meclizine [Antivert] 25 mg PO BID PRN 01/23/18 [History] Follow up Appointment(s)/Referral(s): Lea Del Rosario MD [STAFF PHYSICIAN] - As Needed Patient Instructions/Handouts: *Surgery [facility] - (Anesthesia) Endoscopy Discharge Instructions, Colorectal Polyps (DC) Activity/Diet/Wound Care/Special Instructions: Repeat colonoscopy 2 years, 2021. Recommend 2 days of colon prep Discharge Disposition: HOME SELF-CARE
== END 2020-01-12 09:51 | disposition home or self-care (01) ==
LOC: ORWHC2ENDO 07:01
PROVIDERS: ATTEND Surgery Plastic and Reconstructive Surgery
DX: Z12.11 Encounter for screening for malignant neoplasm of colon (principal); D12.0 Benign neoplasm of cecum; K64.1 Second degree hemorrhoids; K64.4 Residual hemorrhoidal skin tags; Z86.010 Personal history of colon polyps; Z83.71 Family history of colonic polyps; Z80.0 Family history of malignant neoplasm of digestive organs; I10 Essential (primary) hypertension; F31.9 Bipolar disorder, unspecified; F17.210 Nicotine dependence, cigarettes, uncomplicated; Z86.73 Personal history of transient ischemic attack (TIA), and cerebral infarction without residual deficits; Z87.19 Personal history of other diseases of the digestive system; Z90.710 Acquired absence of both cervix and uterus; Z98.890 Other specified postprocedural states; Z79.899 Other long term (current) drug therapy; Z79.82 Long term (current) use of aspirin; Z91.048 Other nonmedicinal substance allergy status; Z91.041 Radiographic dye allergy status; Z97.2 Presence of dental prosthetic device (complete) (partial); Z81.1 Family history of alcohol abuse and dependence; Z80.3 Family history of malignant neoplasm of breast; Z82.49 Family history of ischemic heart disease and other diseases of the circulatory system; Z82.61 Family history of arthritis
CPT/HCPCS: 45385; 88305; J2704

== ENCOUNTER → 2020-03-08 | Outpatient (CLI) | payer MEDICARE, OTHER ==
[2020-03-08 16:28] LABS: African American GFR (CKD) 48.2 (60.0-200.0); Albumin 4.5 g/dL (3.80-4.90); Albumin/Globulin Ratio 1.96 (1.60-3.17); Anion Gap 7.3 mmol/L (4.00-12.00); BUN/Creat Ratio 7.14 Ratio (12.00-20.00); Calcium 9.2 mg/dL (8.7-10.3); Carbon Dioxide 25.7 mmol/L (21.6-31.8); Chol/HDL Ratio 2.02; Globulin 2.3 g/dL (1.6-3.3); Non-African American GFR(CKD) 41.6 (60.0-200.0); Potassium 4.7 mmol/L (3.5-5.5); Total Bilirubin 0.7 mg/dL (0.3-1.2); Total Protein 6.8 g/dL (6.2-8.2)
== END | disposition home or self-care (01) ==
LOC: LABWHC1 09:40
PROVIDERS: ATTEND Psychiatry & Neurology Pain Medicine
DX: Z51.81 Encounter for therapeutic drug level monitoring (principal)
CPT/HCPCS: 36415; 80053; 80061

== ENCOUNTER → 2020-04-11 | Outpatient (CLI) | payer MEDICARE, OTHER ==
--- NOTE | 2020-04-11 13:06 | US ---
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 Enlarged GLAND SIZE: Right Lobe: 5.7 x 1.7 x 2.1 cm Overall Parenchyma: homogenous Left Lobe: 5.7 x 1.7 x 2.4 cm Overall Parenchyma: homogeneous Isthmus Thickness: .3 cm NODULES RIGHT: # of nodules measured on right: One sub centimeter visualized. LEFT: # of nodules measured on left: 0 ISTHMUS: # of nodules measured in the isthmus: 0 Bilateral neck scanned, no evidence of lymphadenopathy. IMPRESSION: Thyromegaly with a single subcentimeter nodule within the right thyroid lobe
== END | disposition home or self-care (01) ==
LOC: RADUSWWP 12:36
PROVIDERS: ATTEND Psychiatry & Neurology Neurology
DX: E01.0 Iodine-deficiency related diffuse (endemic) goiter (principal)
CPT/HCPCS: 76536

== ENCOUNTER → 2021-02-15 | Outpatient (CLI) | payer MEDICARE, OTHER ==
--- NOTE | 2021-02-19 11:42 | MM ---
Reason for exam: screening (asymptomatic). Last mammogram was performed 2 years and 1 month ago. History: Patient is postmenopausal. Family history of breast cancer in mother at age 78. Physical Findings: A clinical breast exam by your physician is recommended on an annual basis and results should be correlated with mammographic findings. MG Screening Mammo w CAD Bilateral CC and MLO view(s) were taken. Prior study comparison: January 25, 2019, bilateral MG screening mammo w CAD. May 21, 2017, bilateral MG screening mammo w CAD. The breast tissue is heterogeneously dense. This may lower the sensitivity of mammography. No significant changes when compared with prior studies. ASSESSMENT: Incomplete: need additional imaging evaluation, BI-RAD 0 RECOMMENDATION: Ultrasound of the left breast. (left breast lump) [facility] will attempt to contact patient to return for ultrasound.
== END | disposition home or self-care (01) ==
LOC: RADMAMWWP 15:52
PROVIDERS: ATTEND Internal Medicine
DX: Z12.31 Encounter for screening mammogram for malignant neoplasm of breast (principal); Z78.0 Asymptomatic menopausal state; Z80.3 Family history of malignant neoplasm of breast
CPT/HCPCS: 77067

== ENCOUNTER → 2021-02-23 | Outpatient (CLI) | payer MEDICARE, OTHER ==
--- NOTE | 2021-02-26 08:01 | USB ---
Reason for exam: additional evaluation requested from abnormal screening. History: Patient is postmenopausal. Family history of breast cancer in mother at age 78. Physical Findings: Nurse did not find any significant physical abnormalities on exam. US Breast Workup Limited LT Left limited breast ultrasound including focal area of concern, retroareolar and axilla demonstrates a 0.9 x 1.1 x 1.0cm mixed lesion at 10 o'clock within 2.8cm superficial, hyperechoic area at palpable, patient states no injury. These results were verbally communicated with the patient and result sheet given to the patient on 02/23/21. ASSESSMENT: Suspicious, BI-RAD 4 RECOMMENDATION: Ultrasound core biopsy of the left breast. (correlate with history) Called Dr. Alex's office with mammographic findings and has scheduled an appointment for the patient for 03/30/21 at 3:[address] Grande. Biopsy scheduled for 04/02/21 at 1:00. PRELIMINARY REPORT CALLED AND FAXED TO DR. GRANDE ON 02/26/21.
== END | disposition home or self-care (01) ==
LOC: RADUSWWP 12:28
PROVIDERS: ATTEND Internal Medicine
DX: N64.89 Other specified disorders of breast (principal); Z78.0 Asymptomatic menopausal state; Z80.3 Family history of malignant neoplasm of breast

== ENCOUNTER 2021-04-01 10:40 | Emergency (ER) | payer MEDICARE, OTHER ==
[2021-04-01 11:00] VITALS: BP 168/106; PULSE 92; RESP 18; TEMP 98.3
--- NOTE | 2021-04-01 11:10 | ED ---
General Adult HPI - General Chief complaint: Extremity Injury, Lower Stated complaint: Toe injury Time Seen by Provider: 04/01/21 11:03 Source: patient, RN notes reviewed Mode of arrival: ambulatory Limitations: no limitations - History of Present Illness Initial comments: 56-year-old well-appearing black female, presents to the emergency room with complaints of 2 weeks of right foot pain. She states that she kicked a wall 2 weeks ago and has been tolerating the pain but it is continuing to hurt and not getting better. She is concerned for fracture. She is able to bear weight. She does not take any medications on a daily basis. She was offered Tylenol and/or Motrin and she refused. -: week(s) (2) Location: right (Foot), lower extremity Severity scale (1-10): 9 Quality: aching, sharp Consistency: constant Improves with: none Worsens with: other (Palpation) Associated Symptoms: denies other symptoms Treatments Prior to Arrival: none - Related Data Home Medications Medication Instructions Recorded Confirmed QUEtiapine [SEROquel] 800 mg PO HS 05/31/16 03/22/21 lamoTRIgine [LaMICtal] 200 mg PO BID 05/31/16 03/22/21 Lisinopril-Hctz 20-25 mg 1 tab PO DAILY 04/14/17 03/22/21 [Zestoretic 20-25] Aspirin EC [Ecotrin Low Dose] 81 mg PO DAILY 06/16/17 03/22/21 Meclizine [Antivert] 25 mg PO BID PRN 01/23/18 03/22/21 Atorvastatin [Lipitor] 40 mg PO DAILY 03/22/21 03/22/21 Clopidogrel [Plavix] 75 mg PO DAILY 03/22/21 03/22/21 Donepezil [Aricept] 10 mg PO DAILY 03/22/21 03/22/21 Multivitamin [Multivitamins Adult 1 each PO DAILY 03/22/21 03/22/21 Gummies] Omeprazole 40 mg PO DAILY 03/22/21 03/22/21 Venlafaxine HCl [Effexor XR] 150 mg PO DAILY 03/22/21 03/22/21 diphenhydrAMINE [Benadryl] 50 mg PO HS 03/22/21 03/22/21 Previous Rx's Medication Instructions Recorded Metoprolol Tartrate [Lopressor] 50 mg PO BID #60 tab 06/19/15 Allergies Allergy/AdvReac Type Severity Reaction Status Date / Time Iodinated Contrast Media Allergy Rash/Hives Verified 04/01/21 11:00 [Iodinated Contrast- Oral and IV Dye] iodine Allergy Swelling Verified 04/01/21 11:00 Review of Systems ROS Statement: Those systems with pertinent positive or pertinent negative responses have been documented in the HPI. ROS Other: All systems not noted in ROS Statement are negative. Past Medical History Past Medical History: CVA/TIA, Hypertension Additional Past Medical History / Comment(s): pancreatitis, bipolar, hx of colon polyps History of Any Multi-Drug Resistant Organisms: None Reported Past Surgical History: Hysterectomy Additional Past Surgical History / Comment(s): partial hysterectomy, colonoscopy Past Anesthesia/Blood Transfusion Reactions: No Reported Reaction Past Psychological History: Bipolar Smoking Status: Current every day smoker Past Alcohol Use History: None Reported Past Drug Use History: None Reported - Past Family History Father Family Medical History: No Reported History Additional Family Medical History / Comment(s): from complications from alcoholism Mother History Unknown: Yes Family Medical History: Cancer, Hypertension, Osteoarthritis (OA) Additional Family Medical History / Comment(s): breast CA General Exam Limitations: no limitations General appearance: alert, in no apparent distress Head exam: Present: atraumatic, normocephalic Eye exam: Present: normal appearance, EOMI ENT exam: Present: mucous membranes moist Neck exam: Present: full ROM Respiratory exam: Present: normal lung sounds bilaterally. Absent: respiratory distress, wheezes, rales, rhonchi, stridor Cardiovascular Exam: Present: regular rate, normal rhythm, normal heart sounds. Absent: systolic murmur, diastolic murmur, rubs, gallop, clicks Right Foot/Toe exam: Present: tenderness (Fourth and fifth metatarsal), swelling. Absent: abrasion, laceration, deformity Neurovascular tendon exam: Present: no vascular compromise. Absent: abnormal cap refill Gait: observed and normal Neurological exam: Present: alert, oriented X3 Psychiatric exam: Present: normal affect, normal mood Skin exam: Present: warm, dry, intact, normal color. Absent: rash Course Vital Signs 04/01/21 10:57 Temperature 98.3 F Pulse Rate 92 Respiratory 18 Rate Blood Pressure 168/106 O2 Sat by Pulse 96 Oximetry Medical Decision Making - Medical Decision Making There is an acute nondisplaced transverse fracture at the base of the fifth proximal phalanx. Patient was placed in an or social and directed to follow up with orthopedics. She again was offered Motrin or Tylenol and she refused. Case discussed with Dr. Lyons Disposition Clinical Impression: Toe fracture, right Disposition: HOME SELF-CARE Condition: Good Instructions (If sedation given, give patient instructions): Toe Fracture (ED) Additional Instructions: Follow-up with orthopedics next week. Tylenol and/or Motrin as needed for pain. Is patient prescribed a controlled substance at d/c from ED?: No Referrals: Cecil Alex MD [Primary Care Provider] - 1-2 days Renato Nair PAC [PHYSICIAN [employer]ER] - 1-2 days Time of Disposition: 11:39
--- NOTE | 2021-04-01 11:32 | XR ---
EXAMINATION TYPE: XR foot complete RT DATE OF EXAM: 04/01/2021 COMPARISON: NONE HISTORY: 56-year-old female stubbed fifth toe 2 weeks ago, pain TECHNIQUE: 3 views FINDINGS: There is a nondisplaced transverse fracture at the base of the fifth proximal phalanx. Overlying soft tissue swelling. No additional acute fracture, subluxation, dislocation seen. Small plantar heel spu r. IMPRESSION: Acute, nondisplaced transverse fracture at the base of the fifth proximal phalanx with overlying soft tissue swelling.
== END 2021-04-01 11:59 | disposition home or self-care (01) ==
LOC: EC 10:40
DX: S92.911A Unspecified fracture of right toe(s), initial encounter for closed fracture (principal); Z86.73 Personal history of transient ischemic attack (TIA), and cerebral infarction without residual deficits; I10 Essential (primary) hypertension; F31.9 Bipolar disorder, unspecified; F17.200 Nicotine dependence, unspecified, uncomplicated; W22.8XXA Striking against or struck by other objects, initial encounter
CPT/HCPCS: 99283

== ENCOUNTER → 2021-04-02 | Day surgery (SDC) | payer MEDICARE, OTHER ==
[2021-04-02 12:32] VITALS: BP 159/100; PULSE 77; RESP 12; TEMP 98.1
--- NOTE | 2021-04-02 14:33 | USB ---
Discontinued ultrasound guided core biopsy left breast HISTORY: Left breast lesion at the 10:00 position The patient was imaged prior to possible biopsy of the left 10:00 lesion. The area of interest is muc h smaller in size and fails to demonstrate heterogeneity seen previously. The area likely reflects a small lipoma. Continued follow-up is recommended with short-term follow-up in 3 months. IMPRESSION: Probably benign BI-RADS 3 Recommendation: Ultrasound follow-up of the left breast in 3 months
== END ==
LOC: RADUSWWP 12:07
PROVIDERS: ATTEND Surgery
DX: N63.25 Unspecified lump in the left breast, overlapping quadrants (principal)

== ENCOUNTER → 2021-04-09 | Outpatient (CLI) | payer MEDICARE, OTHER ==
--- NOTE | 2021-04-09 16:02 | US ---
EXAMINATION TYPE: US thyroid st tissue head/neck DATE OF EXAM: 04/09/2021 COMPARISON: US CLINICAL HISTORY: E01.0 THYROMEGALY. Thyromegaly. GLAND SIZE: Right Lobe: 4.9 x 2.3 x 1.6 cm Overall Parenchyma: homogenous Left Lobe: 5.3 x 2.2 x 1.9 cm Overall Parenchyma: homogeneous Isthmus Thickness: 0.2 cm NODULES RIGHT: # of nodules measured on right: 1 1. 0.4 X 0.5 x 0.2 cm, upper, complex nodule, which is wider than tall, with smooth margins, withou t echogenic foci. TR 3 Prior size: Subcentimeter nodule noted on prior exam. LEFT: # of nodules measured on left: 0 ISTHMUS: # of nodules measured in the isthmus: 0 Bilateral neck scanned, no evidence of lymphadenopathy. IMPRESSION: 1. Subcentimeter nodule right lobe thyroid. 2017 ACR TI-RADS LEVEL: TR-RADS 3 - Mildly Suspicious: Follow if > 1.5 cm, FNA if > 2.5 cm *Highest TI-RADS level nodule reported
== END | disposition home or self-care (01) ==
LOC: RADUSWWP 15:30
PROVIDERS: ATTEND Psychiatry & Neurology Neurology
DX: E04.1 Nontoxic single thyroid nodule (principal)
CPT/HCPCS: 76536

== ENCOUNTER 2021-04-30 09:25 | Emergency (ER) | payer MEDICARE, OTHER ==
[2021-04-30 09:40] VITALS: BP 202/110; PULSE 87; RESP 20; TEMP 97.7
--- NOTE | 2021-04-30 10:37 | XR ---
EXAMINATION TYPE: XR foot complete RT DATE OF EXAM: 04/30/2021 CLINICAL HISTORY: Foot pain TECHNIQUE: Frontal, lateral, and oblique images of the right foot are obtained. COMPARISON: 04/01/2021 FINDINGS: There is an intra-articular fracture of the base of the proximal phalanx of the fifth toe with 3 main fracture fragments and associated bony remodeling. There is near anatomic alignment. IMPRESSION: There is an intra-articular fracture of the base of the proximal phalanx of the fifth toe with 3 main fracture fragments and associated bony remodeling. There is near anatomic alignment.
[2021-04-30] MEDS ORDERED: ACET/COD 300 MG/30 MG STARTER PACK 6 TAB BTL PO STA (11:20)
--- NOTE | 2021-04-30 11:25 | ED ---
Extremity Problem HPI - General Chief complaint: Extremity Problem,Nontraumatic Stated complaint: RT foot pain Time Seen by Provider: 04/30/21 11:12 Source: patient, RN notes reviewed Mode of arrival: ambulatory Limitations: no limitations - History of Present Illness Initial comments: 56-year-old female presented emergency from chief complaint of right foot pain. Patient seen here are diagnosed with toe fracture. She states never followed up states that the pain is getting worse. Patient denies any new injuries she states it's swollen, painful. - Related Data Home Medications Medication Instructions Recorded Confirmed QUEtiapine [SEROquel] 800 mg PO HS 05/31/16 04/02/21 lamoTRIgine [LaMICtal] 200 mg PO BID 05/31/16 04/02/21 Lisinopril-Hctz 20-25 mg 1 tab PO DAILY 04/14/17 04/02/21 [Zestoretic 20-25] Aspirin EC [Ecotrin Low Dose] 81 mg PO DAILY 06/16/17 04/02/21 Meclizine [Antivert] 25 mg PO BID PRN 01/23/18 04/02/21 Atorvastatin [Lipitor] 40 mg PO DAILY 03/22/21 04/02/21 Clopidogrel [Plavix] 75 mg PO DAILY 03/22/21 04/02/21 Donepezil [Aricept] 10 mg PO DAILY 03/22/21 04/02/21 Multivitamin [Multivitamins Adult 1 each PO DAILY 03/22/21 04/02/21 Gummies] Omeprazole 40 mg PO DAILY 03/22/21 04/02/21 Venlafaxine HCl [Effexor XR] 150 mg PO DAILY 03/22/21 04/02/21 diphenhydrAMINE [Benadryl] 50 mg PO HS 03/22/21 04/02/21 Previous Rx's Medication Instructions Recorded Metoprolol Tartrate [Lopressor] 50 mg PO BID #60 tab 06/19/15 Allergies Allergy/AdvReac Type Severity Reaction Status Date / Time Iodinated Contrast Media Allergy Rash/Hives Verified 04/30/21 09:40 [Iodinated Contrast- Oral and IV Dye] iodine Allergy Swelling Verified 04/30/21 09:40 Review of Systems ROS Statement: Those systems with pertinent positive or pertinent negative responses have been documented in the HPI. ROS Other: All systems not noted in ROS Statement are negative. Past Medical History Past Medical History: CVA/TIA, Hypertension Additional Past Medical History / Comment(s): pancreatitis, bipolar, hx of colon polyps History of Any Multi-Drug Resistant Organisms: None Reported Past Surgical History: Hysterectomy Additional Past Surgical History / Comment(s): partial hysterectomy, colonoscopy Past Anesthesia/Blood Transfusion Reactions: No Reported Reaction Past Psychological History: Bipolar Smoking Status: Current every day smoker Past Alcohol Use History: Occasional Past Drug Use History: None Reported - Past Family History Father Family Medical History: No Reported History Additional Family Medical History / Comment(s): from complications from alcoholism Mother History Unknown: Yes Family Medical History: Cancer, Hypertension, Osteoarthritis (OA) Additional Family Medical History / Comment(s): breast CA General Exam Limitations: no limitations General appearance: alert, in no apparent distress Respiratory exam: Present: normal lung sounds bilaterally. Absent: respiratory distress, wheezes, rales, rhonchi, stridor Cardiovascular Exam: Present: regular rate, normal rhythm, normal heart sounds. Absent: systolic murmur, diastolic murmur, rubs, gallop, clicks Extremities exam: Present: other (Right foot fifth digit is tender, swollen neurovascular intact) Course Vital Signs 04/30/21 09:37 Temperature 97.7 F Pulse Rate 87 Respiratory 20 Rate Blood Pressure 202/110 O2 Sat by Pulse 99 Oximetry Procedures - Orthopedic Splinting/Casting Injury #1 Side: right Lower Extremity Injury Location: short leg, foot, toe Lower Extremity Immobilizer: posterior splint, synthetic pre-padded splint Other Orthopedic Equipment: crutches Medical Decision Making - Medical Decision Making Patient will be given prescription for crutches will follow-up with orthopedics return for worsening changes symptoms. Disposition Clinical Impression: Fracture of toe of right foot Disposition: HOME SELF-CARE Condition: Stable Instructions (If sedation given, give patient instructions): Toe Fracture (ED) Additional Instructions: Please return to the Emergency Department if symptoms worsen or any other concerns. Is patient prescribed a controlled substance at d/c from ED?: No Referrals: Cecil Alex MD [Primary Care Provider] - 1-2 days Chidi Obrien MD [Medical Doctor] - 1-2 days Time of Disposition: 11:25
== END 2021-04-30 11:46 | disposition home or self-care (01) ==
LOC: EC 09:25
DX: S92.511A Displaced fracture of proximal phalanx of right lesser toe(s), initial encounter for closed fracture (principal); I10 Essential (primary) hypertension; F31.9 Bipolar disorder, unspecified; F17.200 Nicotine dependence, unspecified, uncomplicated; Z79.82 Long term (current) use of aspirin; Z79.02 Long term (current) use of antithrombotics/antiplatelets; Z79.899 Other long term (current) drug therapy; X58.XXXA Exposure to other specified factors, initial encounter
CPT/HCPCS: 29515; 99283

== ENCOUNTER 2021-10-09 13:47 | Emergency (ER) | payer MEDICARE, OTHER ==
[2021-10-09 14:01] VITALS: RESP 18; TEMP 98.5
[2021-10-09] MEDS ORDERED: MECLIZINE 12.5 MG TAB PO STA (14:24)
[2021-10-09] MEDS ORDERED: SODIUM CHLORIDE 0.9% 500 ML 500 ML IV STA (14:38)
[2021-10-09] MEDS ORDERED: METOCLOPRAMIDE 5 MG/ML 2 ML VIAL IVP STA (14:38)
[2021-10-09 14:49] LABS: Basophils # (A) 0.1 k/uL (0-0.2); Basophils % (A) 1 %; Eosinophils # (A) 0.1 k/uL (0-0.7); Eosinophils % (A) 1 %; HCT 41.9 % (34.0-46.0); HGB 13.6 gm/dL (11.4-16.0); Lymphocytes # (A) 1.4 k/uL (1.0-4.8); Lymphocytes % (A) 15 %; MCH 32.5 pg (25.0-35.0); MCHC 32.5 g/dL (31.0-37.0); MCV 100.2 fL (80.0-100.0); Mean Platelet Volume 8.7; Monocytes # (A) 0.3 k/uL (0-1.0); Monocytes % (A) 3 %; Neutrophils # (A) 6.8 k/uL (1.3-7.7); Neutrophils % (A) 78 %; Platelet Count 233 k/uL (150-450); RBC 4.18 m/uL (3.80-5.40); WBC 8.7 k/uL (3.8-10.6)
--- NOTE | 2021-10-09 14:56 | ED ---
General Adult HPI - General Chief complaint: Dizziness Stated complaint: Dizziness Time Seen by Provider: 10/09/21 14:13 Source: patient, EMS Mode of arrival: EMS Limitations: no limitations - History of Present Illness Initial comments: This 56-year-old female with a past medical history of CVA/TIA, hypertension, bipolar disorder presents emergency Department with dizziness last night. Patient states around 8 PM she felt as if she was spinning. Patient states she has been experiencing this since last night and states it has not gone away yet. Patient states she has had episodes like this in her past and has been treated for these symptoms here, however patient states she states the dizziness usually goes away on its own within a few hours or when she wakes up in the morning. Patient states she has seen neurologist for these symptoms in her past. She denies any falls, double or blurred vision. Patient denies any one-sided weakness, difficulty speaking, changes in vision, trouble walking. Patient denies any chest pain, shortness of breath, abdominal pain, nausea, vomiting, change in bowel or bladder, change in appetite, headache, lightheadedness. - Related Data Home Medications Medication Instructions Recorded Confirmed QUEtiapine [SEROquel] 800 mg PO HS 05/31/16 10/09/21 lamoTRIgine [LaMICtal] 200 mg PO BID 05/31/16 10/09/21 Atorvastatin [Lipitor] 40 mg PO HS 03/22/21 10/09/21 Venlafaxine HCl [Effexor XR] 150 mg PO DAILY 03/22/21 10/09/21 Previous Rx's Medication Instructions Recorded Metoprolol Tartrate [Lopressor] 50 mg PO BID #60 tab 06/19/15 Allergies Allergy/AdvReac Type Severity Reaction Status Date / Time Iodinated Contrast Media Allergy swelling Verified 10/09/21 16:37 [Iodinated Contrast- Oral of face and IV Dye] iodine Allergy Swelling Verified 10/09/21 16:37 of face Review of Systems ROS Statement: Those systems with pertinent positive or pertinent negative responses have been documented in the HPI. ROS Other: All systems not noted in ROS Statement are negative. Past Medical History Past Medical History: CVA/TIA, Hypertension Additional Past Medical History / Comment(s): pancreatitis, bipolar, hx of colon polyps History of Any Multi-Drug Resistant Organisms: None Reported Past Surgical History: Hysterectomy Additional Past Surgical History / Comment(s): partial hysterectomy, colonoscopy Past Anesthesia/Blood Transfusion Reactions: No Reported Reaction Past Psychological History: Bipolar Smoking Status: Current every day smoker Past Alcohol Use History: Occasional Past Drug Use History: None Reported - Past Family History Father Family Medical History: No Reported History Additional Family Medical History / Comment(s): from complications from alcoholism Mother History Unknown: Yes Family Medical History: Cancer, Hypertension, Osteoarthritis (OA) Additional Family Medical History / Comment(s): breast CA General Exam Limitations: no limitations General appearance: alert, in no apparent distress Head exam: Present: atraumatic, normocephalic, normal inspection Eye exam: Present: normal appearance, PERRL, EOMI. Absent: scleral icterus, c onjunctival injection, periorbital swelling Pupils: Present: normal accommodation ENT exam: Present: normal exam, mucous membranes moist Neck exam: Present: normal inspection, full ROM. Absent: tenderness, meningismus, lymphadenopathy Respiratory exam: Present: normal lung sounds bilaterally. Absent: respiratory distress, wheezes, rales, rhonchi, stridor Cardiovascular Exam: Present: regular rate, normal rhythm, normal heart sounds. Absent: systolic murmur, diastolic murmur, rubs, gallop, clicks GI/Abdominal exam: Present: soft, normal bowel sounds. Absent: distended, tenderness, guarding, rebound, rigid Extremities exam: Present: normal inspection, full ROM, normal capillary refill. Absent: tenderness, pedal edema, joint swelling, calf tenderness Back exam: Present: normal inspection, full ROM. Absent: CVA tenderness (R), CVA tenderness (L), paraspinal tenderness, vertebral tenderness Neurological exam: Present: alert, oriented X3, CN II-XII intact, other (Patient able to perform finger to nose, 6 cardinal signs of days, rapid alternating movements without any trouble.). Absent: motor sensory deficit Psychiatric exam: Present: normal affect, normal mood Skin exam: Present: warm, dry, intact, normal color. Absent: rash Course Vital Signs 10/09/21 10/09/21 10/09/21 13:49 15:00 17:00 Temperature 98.5 F Pulse Rate 81 79 78 Respiratory 18 18 18 Rate Blood Pressure 186/107 142/78 143/78 O2 Sat by Pulse 98 98 95 Oximetry EKG Findings - EKG Comments: EKG Findings:: EKG: Ventricular rate 74 bpm. MS interval 176. QRS duration 94. QT/QTC 380/408. Flipped T waves in lead III. EKG reviewed by myself and my attending, Dr. Owens. Medical Decision Making - Medical Decision Making This 56-year-old female presents emergency Department with dizziness that began 8 PM last night. Patient with hematology unremarkable, coagulations unremarkable, chemistry potassium 5.7-hemolyzed, chloride 113, creatinine 1.3. Urine unremarkable. CT brain without contrast impression: No acute intracranial abnormality or gross space-occupying lesion by this nonenhanced computed tomography scan. Chronic areas of encephalomalacia as described above, stable. No acute intracranial hemorrhage. No gross acute cortical infarct. Patient was requesting discharge and stated she felt much better after receiving Valium, Meclizine and Reglan along with fluids. Patient did get up and was able to walk to the bathroom. Patient feels comfortable being discharged to go home and following up with her primary care provider along with her neurologist in the next few days. Strict return precautions were discussed. Patient verbally agreed to plan. Patient sent home in stable condition. Case discussed in detail with my attending, Dr. Owens. Upon arrival patient's blood pressure was elevated, however after patient was placed in room and come down her blood pressure stabilized and prior to discharge was 142/89. She states she does have a history of high blood pressure and states when she goes a hospital or her primary care office it does elevate, she states she does take high blood pressure medication and will take it when she gets home. Prior to discharge patient without any symptoms - Lab Data Result diagrams: 10/09/21 14:37 10/09/21 14:37 Lab Results 10/09/21 10/09/21 10/09/21 Range/Units 14:37 14:37 14:37 WBC 8.7 (3.8-10.6) k/uL RBC 4.18 (3.80-5.40) m/uL Hgb 13.6 (11.4-16.0) gm/dL Hct 41.9 (34.0-46.0) % MCV 100.2 H (80.0-100.0) fL MCH 32.5 (25.0-35.0) pg MCHC 32.5 (31.0-37.0) g/dL RDW 13.0 (11.5-15.5) % Plt Count 233 (150-450) k/uL MPV 8.7 Neutrophils % 78 % Lymphocytes % 15 % Monocytes % 3 % Eosinophils % 1 % Basophils % 1 % Neutrophils # 6.8 (1.3-7.7) k/uL Lymphocytes # 1.4 (1.0-4.8) k/uL Monocytes # 0.3 (0-1.0) k/uL Eosinophils # 0.1 (0-0.7) k/uL Basophils # 0.1 (0-0.2) k/uL PT 10.5 (9.0-12.0) sec INR 1.0 (<1.2) Sodium 140 (137-145) mmol/L Potassium 5.7 H (3.5-5.1) mmol/L Chloride 113 H (98-107) mmol/L Carbon Dioxide 19 L (22-30) mmol/L Anion Gap 8 mmol/L BUN 15 (7-17) mg/dL Creatinine 1.32 H (0.52-1.04) mg/dL Est GFR (CKD-EPI)AfAm 51 (>60 ml/min/1.73 sqM) Est GFR (CKD-EPI)NonAf 45 (>60 ml/min/1.73 sqM) Glucose 80 (74-99) mg/dL Plasma Lactic Acid Pernell (0.7-2.0) mmol/L Calcium 8.6 (8.4-10.2) mg/dL Total Bilirubin 0.9 (0.2-1.3) mg/dL AST 45 H (14-36) U/L ALT 29 (4-34) U/L Alkaline Phosphatase 88 (38-126) U/L Total Protein 7.1 (6.3-8.2) g/dL Albumin 4.2 (3.5-5.0) g/dL Urine Color Urine Appearance (Clear) Urine pH (5.0-8.0) Ur Specific [place] (1.001-1.035) Urine Protein (Negative) Urine Glucose (UA) (Negative) Urine Ketones (Negative) Urine Blood (Negative) Urine Nitrite (Negative) Urine Bilirubin (Negative) Urine Urobilinogen (<2.0) mg/dL Ur Leukocyte Esterase (Negative) 10/09/21 10/09/21 Range/Units 15:23 15:31 WBC (3.8-10.6) k/uL RBC (3.80-5.40) m/uL Hgb (11.4-16.0) gm/dL Hct (34.0-46.0) % MCV (80.0-100.0) fL MCH (25.0-35.0) pg MCHC (31.0-37.0) g/dL RDW (11.5-15.5) % Plt Count (150-450) k/uL MPV Neutrophils % % Lymphocytes % % Monocytes % % Eosinophils % % Basophils % % Neutrophils # (1.3-7.7) k/uL Lymphocytes # (1.0-4.8) k/uL Monocytes # (0-1.0) k/uL Eosinophils # (0-0.7) k/uL Basophils # (0-0.2) k/uL PT (9.0-12.0) sec INR (<1.2) Sodium (137-145) mmol/L Potassium (3.5-5.1) mmol/L Chloride (98-107) mmol/L Carbon Dioxide (22-30) mmol/L Anion Gap mmol/L BUN (7-17) mg/dL Creatinine (0.52-1.04) mg/dL Est GFR (CKD-EPI)AfAm (>60 ml/min/1.73 sqM) Est GFR (CKD-EPI)NonAf (>60 ml/min/1.73 sqM) Glucose (74-99) mg/dL Plasma Lactic Acid Pernell 1.0 (0.7-2.0) mmol/L Calcium (8.4-10.2) mg/dL Total Bilirubin (0.2-1.3) mg/dL AST (14-36) U/L ALT (4-34) U/L Alkaline Phosphatase (38-126) U/L Total Protein (6.3-8.2) g/dL Albumin (3.5-5.0) g/dL Urine Color Yellow Urine Appearance Clear (Clear) Urine pH 5.5 (5.0-8.0) Ur Specific [place] 1.011 (1.001-1.035) Urine Protein Negative (Negative) Urine Glucose (UA) Negative (Negative) Urine Ketones Negative (Negative) Urine Blood Negative (Negative) Urine Nitrite Negative (Negative) Urine Bilirubin Negative (Negative) Urine Urobilinogen <2.0 (<2.0) mg/dL Ur Leukocyte Esterase Negative (Negative) Disposition Clinical Impression: Dizziness Disposition: HOME SELF-CARE Condition: Stable Instructions (If sedation given, give patient instructions): Dizziness (ED) Additional Instructions: Please return to emergency department if symptoms return or any new, worsening or concerning symptoms arise. Follow-up with primary care provider next 1-2 days. Is patient prescribed a controlled substance at d/c from ED?: No Referrals: Cecil Alex MD [Primary Care Provider] - 1-2 days Time of Disposition: 16:33
[2021-10-09 14:59] LABS: Albumin 4.2 g/dL (3.5-5.0); Calcium 8.6 mg/dL (8.4-10.2); Total Bilirubin 0.9 mg/dL (0.2-1.3); Total Protein 7.1 g/dL (6.3-8.2)
[2021-10-09 15:00] LABS: Potassium 5.7 mmol/L (3.5-5.1)
[2021-10-09 15:01] LABS: Prothrombin Time 10.5 sec (9.0-12.0)
--- NOTE | 2021-10-09 15:23 | CT ---
EXAMINATION TYPE: CT brain wo con DATE OF EXAM: 10/09/2021 COMPARISON: CT dated 06/16/2017 HISTORY: Dizziness. CT DLP: 1123.4 mGycm Automated exposure control for dose reduction was used. TECHNIQUE: CT scan of the brain is performed without IV contrast administration. FINDINGS: Right superior parietal lobule and right lateral frontal cortical and subcortical areas of encephalom alacia, stable. No acute intracranial hemorrhage. No gross acute cortical infarct. No midline shift o r herniation. Unremarkable basal cisterns, sella and CP angles. No gross space-occupying lesion, vasogenic edema or mass effect. Unremarkable orbits. Clear visualized paranasal sinuses and mastoid air cells. Unremarkable calvarial bones. IMPRESSION: No acute intracranial abnormality or gross space-occupying lesion by this nonenhanced CT scan. Chroni c areas of encephalomalacia as described above, stable.
[2021-10-09 15:39] LABS: Appearance,Urine Clear (Clear); Bilirubin,Urine Negative (Negative); Blood,Urine Negative (Negative); Color,Urine Yellow; Glucose,Urine (UA) Negative (Negative); Ketones,Urine Negative (Negative); Leukocyte Esterase,Urine Negative (Negative); Nitrite,Urine Negative (Negative); PH, Urine 5.5 (5.0-8.0); Protein,Urine Negative (Negative); Specific Gravity,Urine 1.011 (1.001-1.035); Urobilinogen,Urine <2.0 mg/dL (<2.0)
[2021-10-09] MEDS ORDERED: DIAZEPAM 5 MG/ML 2 ML INJ IVP STA (16:25)
[2021-10-09 17:02] VITALS: BP 143/78; PULSE 78
== END 2021-10-09 17:02 | disposition home or self-care (01) ==
LOC: EC 13:47
DX: R42 Dizziness and giddiness (principal); I10 Essential (primary) hypertension; F31.9 Bipolar disorder, unspecified; F17.200 Nicotine dependence, unspecified, uncomplicated; Z79.899 Other long term (current) drug therapy
CPT/HCPCS: 36415; 93005; 80053; 83605; 85025; 85610; 81003; 70450; 99284; 96374; 96375; 96361; J2765; J3360

== ENCOUNTER 2022-12-11 11:09 | Emergency (ER) | payer MEDICARE, OTHER ==
[2022-12-11 11:14] VITALS: BP 130/85; PULSE 98; RESP 20; TEMP 98.2
--- NOTE | 2022-12-11 11:27 | ED ---
Extremity Problem HPI - General Chief complaint: Extremity Problem,Nontraumatic Stated complaint: foot abscess Time Seen by Provider: 12/11/22 11:15 Source: patient Mode of arrival: ambulatory Limitations: no limitations - History of Present Illness Initial comments: 57-year-old female presenting to the ED today with chief complaint of rash. Patient states that initially approximately 2 months ago had a dark, quarter- sized itchy rash on her right foot that has now increased in size and spread. Patient now notes that the rash has spread to her other foot and to her upper right thigh. Patient has not been using any medications for this. She has no other complaints. - Related Data Home Medications Medication Instructions Recorded Confirmed QUEtiapine [SEROquel] 800 mg PO HS 05/31/16 10/16/21 lamoTRIgine [LaMICtal] 200 mg PO BID 05/31/16 10/16/21 Atorvastatin [Lipitor] 40 mg PO HS 03/22/21 10/16/21 Venlafaxine HCl [Effexor XR] 150 mg PO DAILY 03/22/21 10/16/21 Previous Rx's Medication Instructions Recorded Metoprolol Tartrate [Lopressor] 50 mg PO BID #60 tab 06/19/15 Clotrimazole Cream [Lotrimin Cream] 1 applic TOPICAL BID #15 gm 12/11/22 Allergies Allergy/AdvReac Type Severity Reaction Status Date / Time Iodinated Contrast Media Allergy swelling Verified 12/11/22 11:14 [Iodinated Contrast- Oral of face and IV Dye] iodine Allergy Swelling Verified 12/11/22 11:14 of face Review of Systems ROS Statement: Those systems with pertinent positive or pertinent negative responses have been documented in the HPI. ROS Other: All systems not noted in ROS Statement are negative. Past Medical History Past Medical History: CVA/TIA, Hypertension Additional Past Medical History / Comment(s): pancreatitis, bipolar, hx of colon polyps History of Any Multi-Drug Resistant Organisms: None Reported Past Surgical History: Hysterectomy Additional Past Surgical History / Comment(s): partial hysterectomy, colonoscopy Past Anesthesia/Blood Transfusion Reactions: No Reported Reaction Past Psychological History: Bipolar Smoking Status: Current every day smoker Past Alcohol Use History: Occasional Past Drug Use History: None Reported - Past Family History Father Family Medical History: No Reported History Additional Family Medical History / Comment(s): from complications from alcoholism Mother History Unknown: Yes Family Medical History: Cancer, Hypertension, Osteoarthritis (OA) Additional Family Medical History / Comment(s): breast CA General Exam Limitations: no limitations General appearance: alert, in no apparent distress Head exam: Present: atraumatic Eye exam: Present: normal appearance Neck exam: Present: normal inspection Respiratory exam: Present: normal lung sounds bilaterally Cardiovascular Exam: Present: regular rate, normal rhythm Left Upper Leg exam: Present: normal inspection (Flat, dark rash with no overlying or surrounding warmth or erythema or tenderness to palpation on right upper thigh ) 1 - Flat rash with no overlying or surrounding warmth and erythema edema or tenderness to palpation 2 - Flat rash with no overlying or surrounding warmth and erythema edema or tenderness to palpation 3 - Flat rash with no overlying or surrounding warmth and erythema edema or tenderness to palpation Course Vital Signs 12/11/22 11:10 Temperature 98.2 F Pulse Rate 98 Respiratory 20 Rate Blood Pressure 130/85 O2 Sat by Pulse 99 Oximetry Medical Decision Making - Medical Decision Making Was pt. sent in by a medical professional or institution (, PA, VOCATIONAL TECHNICAL EDUCATION DIRECTOR, urgent care, hospital, or residential...) When possible be specific @ -[No] Did you speak to anyone other than the patient for history (EMS, parent, family, police, friend...)? What history was obtained from this source @ -[No] Did you review nursing and triage notes (agree or disagree)? Why? @ -[I reviewed and agree with nursing and triage notes] Were old charts reviewed (outside hosp., previous admission, EMS record, old EKG, old radiological studies, urgent care reports/EKG's, residential records)? Report findings @ -[No old charts were reviewed] Differential Diagnosis (chest pain, altered mental status, abdominal pain women, abdominal pain men, vaginal bleeding, weakness, fever, dyspnea, syncope, headache, dizziness, GI bleed, back pain, seizure, CVA, palpatations, mental health, musculoskeletal)? @ -[not applicable] EKG interpreted by me (3pts min.). @ -None X-rays interpreted by me (1pt min.). @ -[None done] CT interpreted by me (1pt min.). @ -[None done] U/S interpreted by me (1pt. min.). @ -[None done] What testing was considered but not performed or refused? (CT, X-rays, U/S, labs)? Why? @ -[None] What meds were considered but not given or refused? Why? @ -[None] Did you discuss the management of the patient with other professionals (professionals i.e. , PA, VOCATIONAL TECHNICAL EDUCATION DIRECTOR, lab, RT, psych nurse, social media campaign manager, president financial institution, teacher, u[employer]s. revenue officer, manager case management)? Give summary @ -[No] Was smoking cessation discussed for >3mins.? @ -[No] Was critical care preformed (if so, how long)? @ -[No] Were there social determinants of health that impacted care today? How? (Homelessness, low income, unemployed, alcoholism, drug addiction, transportation, low edu. Level, literacy, decrease access to med. care, group home, rehab)? @ -[No] Was there de-escalation of care discussed even if they declined (Discuss DNR or withdrawal of care, Hospice)? DNR status @ -[No] What co-morbidities impacted this encounter? (DM, HTN, Smoking, COPD, CAD, Cancer, CVA, ARF, Chemo, Hep., AIDS, mental health diagnosis, sleep apnea, morbid obesity)? @ -[None] Was patient admitted / discharged? Hospital course, mention meds given and route, prescriptions, significant lab abnormalities, going to OR and other pertinent info. @ -Patient discharged with prescription for Clotrimazole cream Undiagnosed new problem with uncertain prognosis? @ -[No] Drug Therapy requiring intensive monitoring for toxicity (Heparin, Nitro, Insulin, Cardizem)? @ -[No] Were any procedures done? @ -[No] Diagnosis/symptom? @ -Tinea infection Acute, or Chronic, or Acute on Chronic? @ -Chronic Uncomplicated (without systemic symptoms) or Complicated (systemic symptoms)? @ -Uncomplicated Side effects of treatment? @ -[No] Exacerbation, Progression, or Severe Exacerbation? @ -[No] Poses a threat to life or bodily function? How? (Chest pain, [place], NH, pneumonia, PE, COPD, DKA, ARF, appy, cholecystitis, CVA, Diverticulitis, Homicidal, Suic idal, threat to staff... and all critical care pts) @ -[No] Disposition Clinical Impression: Tinea Disposition: HOME SELF-CARE Condition: Good Additional Instructions: Please return to the Emergency Department if symptoms worsen or any other concerns. Please follow up with PCP or data developer as needed. Prescriptions: Clotrimazole Cream [Lotrimin Cream] 1 applic TOPICAL BID #15 gm Is patient prescribed a controlled substance at d/c from ED?: No Referrals: None,Stated [Primary Care Provider] - 1-2 days Time of Disposition: 11:35
== END 2022-12-11 12:13 | disposition home or self-care (01) ==
LOC: EC 11:09
DX: B35.9 Dermatophytosis, unspecified (principal); I10 Essential (primary) hypertension; F31.9 Bipolar disorder, unspecified; F17.200 Nicotine dependence, unspecified, uncomplicated; Z79.899 Other long term (current) drug therapy; Z91.041 Radiographic dye allergy status; Z86.73 Personal history of transient ischemic attack (TIA), and cerebral infarction without residual deficits
CPT/HCPCS: 99282

== ENCOUNTER → 2022-12-12 | Outpatient (CLI) | payer MEDICARE, OTHER ==
--- NOTE | 2022-12-15 19:06 | CT ---
EXAMINATION TYPE: CT abdomen pelvis wo con DATE OF EXAM: 12/12/2022 COMPARISON: 06/23/2013 HISTORY: 57-year-old female R94.4, R79.89, R74.8, abnormal kidney function, elevated amylase, lipase, and plasma metanephrines CT DLP: 742.20 mGycm. Automated exposure control for dose reduction was used. TECHNIQUE: Contiguous axial scanning of the abdomen and pelvis without IV contrast. Coronal and sagit percy reconstructions performed. FINDINGS: Heart upper limits of normal in size without pericardial effusion. Some atelectasis at the bilateral medial anterior lung bases. No pleural effusion. Noncontrast appearance of the liver, gallbladder, right adrenal gland, kidneys, spleen with tiny infe rior hilar splenule, and pancreas show no gross abnormality. Detailed assessment limited by lack of I V contrast. There is a low density nodule redemonstrated in the left adrenal gland measuring 1.4 cm currently lyudmila javier 1.7 cm in 2013. The low attenuation of 6 Hounsfield units suggests a benign adrenal adenoma. No dilated small bowel, free fluid, or free air. No mesenteric or retroperitoneal lymphadenopathy. Mild stool burden. Normal appendix. No pericolonic inflammatory change. Bladder is urine distended. Left-sided pelvic phlebolith. Uterus surgically absent. Small bilateral o varies. No abnormal fluid collection the pelvis or pelvic lymphadenopathy. Bones: Moderate degenerative disc disease L5-S1. There are bilateral L5 pars defects with grade 2, ne kali grade 3 anterolisthesis at L5-S1. Findings similar to perhaps slightly progressed from 2013. IMPRESSION: 1. Redemonstrated nodule of the left adrenal gland currently measuring 1.4 cm versus 1.7 cm back in 2013. Overall stability and low attenuation suggests a benign lipid rich left adrenal adenoma. 2. Bilateral L5 pars defects with grade 2, nearly grade 3 anterolisthesis at L5-S1. Associated degen erative disc disease.
== END | disposition home or self-care (01) ==
LOC: RADCTMAIN 13:57
PROVIDERS: ATTEND Family Medicine
DX: M51.36 Other intervertebral disc degeneration, lumbar region (principal); D35.02 Benign neoplasm of left adrenal gland; M43.17 Spondylolisthesis, lumbosacral region; R79.89 Other specified abnormal findings of blood chemistry; R94.4 Abnormal results of kidney function studies; R74.8 Abnormal levels of other serum enzymes
CPT/HCPCS: 74176

== ENCOUNTER → 2022-12-16 | Outpatient (CLI) | payer MEDICARE, OTHER ==
--- NOTE | 2022-12-16 13:55 | MM ---
Reason for Exam: Additional evaluation requested from prior study. Last mammogram was performed 1 year(s) and 10 month(s) ago. Patient History: Menarche at age 13. First Full-Term at age 13. Hysterectomy at age 39. Postmenopausal. 04/02/2021, US discontinued breast bx LT on the left side. Mother had breast cancer, age 78. Sister had breast cancer at or over age 50. Risk Values: Isha 5 year model risk: 2.8%. NCI Lifetime model risk: 13.5%. Prior Study Comparison: 05/21/2017 Bilateral Screening Mammogram, [facility]. 01/25/2019 Bilateral Screening Mammogram, [facility]. 02/15/2021 Bilateral Screening Mammogram, [facility]. Tissue Density: The breast tissue is heterogeneously dense. This may lower the sensitivity of mammography. Findings: Analyzed By CAD. No new suspicious mass, architectural distortion, or group of calcifications within either breast. Overall Assessment: Negative, BI-RAD 1 Management: Screening Mammogram of both breasts in 1 year. A clinical breast exam by your physician is recommended on an annual basis and results should be correlated with mammographic findings. This exam should not preclude additional follow-up of suspicious palpable abnormalities. Results were given to the patient verbally at the time of exam. Electronically signed and approved by: Fernando Cedeno D.O.
== END | disposition home or self-care (01) ==
LOC: RADMAMWWP 13:26
PROVIDERS: ATTEND Family Medicine
DX: R92.8 Other abnormal and inconclusive findings on diagnostic imaging of breast (principal); R92.2 Inconclusive mammogram; Z78.0 Asymptomatic menopausal state; Z80.3 Family history of malignant neoplasm of breast
CPT/HCPCS: 77066

== ENCOUNTER 2023-03-14 06:00 | Day surgery (SDC) | payer MEDICARE, OTHER ==
[2023-03-14] MEDS ORDERED: LIDOCAINE 1% (10MG/ML) FOR IV START INTRADERMA PRN (06:49)
[2023-03-14 06:51] VITALS: TEMP 97.3
[2023-03-14] MEDS: LACTATED RINGERS 1,000 ML IV SCH ×2 (06:54→07:02)
[2023-03-14] MEDS ORDERED: ONDANSETRON 4 MG/2 ML VIAL IVP PRN (07:00)
[2023-03-14] MEDS ORDERED: PROPOFOL 10 MG/ML 20 ML VIAL IV ONE (07:01)
[2023-03-14 07:35] VITALS: RESP 16
--- NOTE | 2023-03-14 07:45 | P.PCN ---
Date of Procedure: 03/14/23 Procedure(s) Performed: BRIEF HISTORY: Patient is a 58-year-old pleasant 5 white female scheduled for an elective colonoscopy as a part of evaluation of prior history of colon polyps. Next PROCEDURE PERFORMED: Colonoscopy with biopsy. PREOPERATIVE DIAGNOSIS: History of colon polyps. IV sedation per Anesthesia. PROCEDURE: After informed consent was obtained, the patient, was brought into the endoscopy unit. IV sedation was administered by Anesthesia under continuous monitoring. Digital rectal examination was normal. Initially the Olympus CF-160 flexible video colonoscope was then inserted in the rectum, gradually advanced into the cecum without any difficulty. Careful examination was performed as the scope was gradually being withdrawn. Ileocecal valve and the appendiceal orifice were visualized and appeared normal. Prep was excellent. Mucosa of the cecum, ascending colon, transverse colon appeared normal. There was a 4 mm polyp adjacent colon that was removed by cold biopsy. Rest of the, descending colon, sigmoid colon, and rectum appeared normal. Retroflexion was performed in the rectum and no lesions were seen. The patient tolerated the procedure well. IMPRESSION: 4 millimeters descending colon polyp status post cold biopsy Rest of the colon appeared normal RECOMMENDATIONS: Findings of this examination were discussed with the patient as well as a family. She was advised to follow with the biopsy results and have a repeat colonoscopy in 5 years.
[2023-03-14] MEDS ORDERED: METOPROLOL TARTRATE 5 MG/5 ML VIAL IVP ONE (07:55)
[2023-03-14] MEDS ORDERED: hydrALAZINE HCL 20 MG/ML 1 ML VIAL ONE (08:32)
[2023-03-14] MEDS ORDERED: hydrALAZINE HCL 20 MG/ML 1 ML VIAL IVP ONE (08:34)
[2023-03-14 09:14] VITALS: BP 181/97; PULSE 69
== END 2023-03-14 09:28 | disposition home or self-care (01) ==
LOC: ORWHC2ENDO 06:00
PROVIDERS: ATTEND Internal Medicine Gastroenterology
DX: D12.4 Benign neoplasm of descending colon (principal); Z12.11 Encounter for screening for malignant neoplasm of colon; Z87.19 Personal history of other diseases of the digestive system; Z87.891 Personal history of nicotine dependence; Z74.09 Other reduced mobility; Z79.899 Other long term (current) drug therapy; Z79.811 Long term (current) use of aromatase inhibitors
CPT/HCPCS: 88305; 45380; J0360; J2704

== ENCOUNTER → 2024-02-12 | Outpatient (CLI) | payer MEDICARE, OTHER ==
--- NOTE | 2024-02-12 11:07 | CTL ---
EXAMINATION TYPE: CT Low Dose Lung DATE OF EXAM ORDERED: 02/12/2024 History: Lung cancer screening CT DLP: 84.[address] CTDI: 2.4 mGy Automated exposure control for dose reduction was used. Comparison: None TECHNIQUE: Low dose computed tomography scan was performed through the chest at 1 mm thick sections a nd reconstructed images in multiple planes at 1 mm and [address] DIAGNOSTIC QUALITY: Satisfactory FINDINGS: There is an ill-defined groundglass opacity adjacent to the major fissure on the right measures appro ximately 8 to 9 mm. There is no airspace consolidation. There is no abnormal interstitial density. There is no pleural effusion, pleural thickening or pneumothorax. The great vessels the chest are normal and no mediastinal, hilar or axillary adenopathy. Heart size i s normal. Limited scanning through the upper abdomen reveals no gross abnormality. No focal osseous lesions are seen. IMPRESSION: 1. Lung RADS category 3, likely benign. Six-month follow-up CT is recommended for further evaluation of the groundglass opacity in the right lung as described above. 2. No acute cardiopulmonary disease.
== END | disposition home or self-care (01) ==
LOC: RADCTMAIN 10:24
PROVIDERS: ATTEND Family Medicine
DX: Z12.2 Encounter for screening for malignant neoplasm of respiratory organs (principal); F17.210 Nicotine dependence, cigarettes, uncomplicated
CPT/HCPCS: 71271